=== PATIENT | female | born 1995 | race Caucasian/White ===

== ENCOUNTER 2019-10-15 13:51 | Outpatient (CLI) | payer OTHER ==
[2019-10-15 16:55] VITALS: BP 121/78; PULSE 91; RESP 16; TEMP 98
--- NOTE | 2019-10-16 07:45 | P.MSEPDOC ---
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 [employer] Medical History - Information : 2 Para: 1 Term: 1 : 0 Abortions: Spontaneous or Elective: 0 Number of Living Children: 1 - Gestational Age Gestational Age by EVER (wks/days): 32 Weeks and 4 Days Review of Systems - Review of Systems Constitutional: No problems Breast: No problems ENT: No problems Cardiovascular: No problems Respiratory: No problems Gastrointestinal: No problems Genitourinary: No problems Musculoskeletal: No problems Neurological: No problems Skin: No problems Vital Signs - Temperature Temperature: 98 F Temperature Source: Temporal Artery Scan - Pulse Right Pulse Rate: 91 Pulse Assessment Method: Automatic Cuff - Respirations Respiratory Rate: 16 Oxygen Delivery Method: Room Air O2 Sat by Pulse Oximetry: 98 - Blood Pressure Right Arm Blood Pressure: 121/78 Blood Pressure Mean: 92 Blood Pressure Source: Automatic Cuff Medical Screen Scoring (Pre) - Cervical Exam Dilation: 1-3 cm = 1 Membranes: Intact - Uterine Contractions Frequency: N/A Duration: N/A Intensity: N/A - Maternal Vital Signs Maternal Temperature: N/A Maternal Blood Pressure: N/A Signs of Preeclampsia: N/A Maternal Respirations: N/A - Maternal Trauma Maternal Trauma: N/A - Assessment - Baby A Baseline FHR: 130 Heart Rate - NICHD Category: Category I (Normal) = 0 NST: Reactive Position: N/A Station: N/A - Total Score - Baby A Total Score - Baby A: 1 - Total Score - Baby B Total Score - Baby B: 1 - Total Score - Baby C Total Score - Baby C: 1 - Level of Risk - Baby A Level of Risk - Baby A: Low (0-5) - Level of Risk - Baby B Level of Risk - Baby B: Low (0-5) - Level of Risk - Baby C Level of Risk - Baby C: Low (0-5) Physician Notification (Pre) - Physician Notified Physician Notified Date: 10/15/19 Physician Notified Time: 15:26 New Order Received: Yes (monitor one more hour if no change and reactive may dc) - Notification Comment Comment: cervix remains unchanged, reactive fhts, no contractions Disposition - Disposition OB Disposition: Triage, Discharge to home Discharge Date: 10/15/19 Discharge Time: 16:30 I agree with the RN Medical Screening Exam: Yes Physician's MSE Comment: THe RN did tell me pt was 1cm, thick and posterior at first. No contractions and category 1 FHT. After 1 hour, the cervix still 1/thick but anterior. We waited another hour and pt was the same. no cervical change, no contractions and neg FFN, pt will be sent home. Risk & Benefit of care provided described in d/c instruction: Yes Diagnosis: FALSE LABOR BEFORE 37 COMPLETED WEEKS OF GEST, THIRD TRI
== END 2019-10-15 16:30 | disposition home or self-care (01) ==
LOC: FBPOP 13:51
PROVIDERS: ATTEND Obstetrics & Gynecology
DX: O47.03 False labor before 37 completed weeks of gestation, third trimester (principal); Z3A.32 32 weeks gestation of pregnancy
CPT/HCPCS: 59025; 82731; G0463; 99213

== ENCOUNTER 2019-11-04 12:44 | Outpatient (CLI) | payer OTHER ==
[2019-11-04 13:52] VITALS: BP 122/81; PULSE 110; RESP 18; TEMP 98
--- NOTE | 2019-11-21 09:56 | P.MSEPDOC ---
Presenting Problems - Arrival Data Date of Arrival on Unit: 11/04/19 Time of Arrival on Unit: 12:45 Mode of Transport: Ambulatory - Complaint OB-Reason for Admission/Chief Complaint: Possible Onset of Labor Comment: contractions. Pt unable to time them. Medical History - Information : 2 Para: 1 Term: 1 : 0 Abortions: Spontaneous or Elective: 0 Number of Living Children: 1 - Gestational Age Gestational Age by EVER (wks/days): 35 Weeks and 3 Days Review of Systems - Review of Systems Constitutional: No problems Breast: No problems ENT: No problems Cardiovascular: No problems Respiratory: No problems Gastrointestinal: No problems Genitourinary: No problems Musculoskeletal: No problems Neurological: No problems Skin: No problems Vital Signs - Temperature Temperature: 98.0 F Temperature Source: Oral - Pulse Right Sitting Brachial Pulse Rate: 110 Pulse Assessment Method: Automatic Cuff - Respirations Respiratory Rate: 18 Oxygen Delivery Method: Room Air - Blood Pressure Right Arm Sitting Blood Pressure: 122/81 Blood Pressure Mean: 94 Blood Pressure Source: Automatic Cuff Medical Screen Scoring (Pre) - Cervical Exam Dilation: 1-3 cm = 1 - Uterine Contractions Frequency: > 5 minutes apart = 1 Duration: N/A Intensity: N/A - Maternal Vital Signs Maternal Temperature: N/A Maternal Blood Pressure: N/A Signs of Preeclampsia: N/A Maternal Respirations: N/A - Maternal Trauma Maternal Trauma: N/A - Assessment - Baby A Baseline FHR: 130 Heart Rate - NICHD Category: Category I (Normal) = 0 NST: Reactive Position: N/A Station: N/A - Total Score - Baby A Total Score - Baby A: 2 - Total Score - Baby B Total Score - Baby B: 2 - Total Score - Baby C Total Score - Baby C: 2 - Level of Risk - Baby A Level of Risk - Baby A: Low (0-5) - Level of Risk - Baby B Level of Risk - Baby B: Low (0-5) - Level of Risk - Baby C Level of Risk - Baby C: Low (0-5) Physician Notification (Pre) - Physician Notified Physician Notified Date: 11/04/19 Physician Notified Time: 13:45 New Order Received: Yes - Notification Comment Comment: Dc home. Follow up in the office with Dr Steele as scheduled. Disposition - Disposition OB Disposition: Discharge to home Discharge Date: 11/04/19 Discharge Time: 13:52 I agree with the RN Medical Screening Exam: Yes Risk & Benefit of care provided described in d/c instruction: Yes Diagnosis: FALSE LABOR BEFORE 37 COMPLETED WEEKS OF GEST, THIRD TRI
== END 2019-11-04 13:52 | disposition home or self-care (01) ==
LOC: FBPOP 12:44
PROVIDERS: ATTEND Obstetrics & Gynecology
DX: O47.03 False labor before 37 completed weeks of gestation, third trimester (principal); Z3A.35 35 weeks gestation of pregnancy
CPT/HCPCS: 59025; G0463; 99213

== ENCOUNTER 2019-11-14 15:51 | Outpatient (CLI) | payer OTHER ==
[2019-11-14 17:22] VITALS: BP 122/75; PULSE 93; RESP 16; TEMP 98.6
--- NOTE | 2019-11-15 13:22 | P.MSEPDOC ---
Presenting Problems - Arrival Data Date of Arrival on Unit: 11/14/19 Time of Arrival on Unit: 15:52 Mode of Transport: Ambulatory - Complaint OB-Reason for Admission/Chief Complaint: Possible Onset of Labor Comment: ctx and pressure for 2 days, 4cm in office Medical History - Information : 2 Para: 1 Term: 1 : 0 Abortions: Spontaneous or Elective: 0 Number of Living Children: 1 - Gestational Age Gestational Age by EVER (wks/days): 37 Weeks and 0 Days Review of Systems - Review of Systems Constitutional: No problems Breast: No problems ENT: No problems Cardiovascular: No problems Respiratory: No problems Gastrointestinal: No problems Genitourinary: No problems Musculoskeletal: No problems Neurological: No problems Skin: No problems Vital Signs - Temperature Temperature: 98.6 F Temperature Source: Temporal Artery Scan - Pulse Right Pulse Rate: 93 Pulse Assessment Method: Automatic Cuff - Respirations Respiratory Rate: 16 Oxygen Delivery Method: Room Air O2 Sat by Pulse Oximetry: 98 - Blood Pressure Right Arm Blood Pressure: 122/75 Blood Pressure Mean: 90 Blood Pressure Source: Automatic Cuff Medical Screen Scoring (Pre) - Cervical Exam Dilation: 4-7 cm = 2 Effacement: More than 50% = 2 Membranes: Intact - Uterine Contractions Frequency: > or = 36 weeks =2 Duration: > 40 seconds = 2 Intensity: N/A - Maternal Vital Signs Maternal Temperature: N/A Maternal Blood Pressure: N/A Signs of Preeclampsia: N/A Maternal Respirations: N/A - Maternal Trauma Maternal Trauma: N/A - Assessment - Baby A Baseline FHR: 125 Heart Rate - NICHD Category: Category I (Normal) = 0 NST: Reactive Position: N/A Station: N/A - Total Score - Baby A Total Score - Baby A: 8 - Total Score - Baby B Total Score - Baby B: 8 - Total Score - Baby C Total Score - Baby C: 8 - Level of Risk - Baby A Level of Risk - Baby A: Medium (6-9) - Level of Risk - Baby B Level of Risk - Baby B: Medium (6-9) - Level of Risk - Baby C Level of Risk - Baby C: Medium (6-9) Physician Notification (Pre) - Physician Notified Physician Notified Date: 11/14/19 Physician Notified Time: 16:54 New Order Received: Yes (discharge if no cervical change) - Notification Comment Comment: No cervical change, reactive fhts, scheduled appt tomorrow in office Disposition - Disposition OB Disposition: Triage, Discharge to home, Written follow up instructions reviewed Discharge Date: 11/14/19 Discharge Time: 17:10 I agree with the RN Medical Screening Exam: Yes Risk & Benefit of care provided described in d/c instruction: Yes Diagnosis: FALSE LABOR AT OR AFTER 37 COMPLETED WEEKS OF GESTATION
== END 2019-11-14 17:10 | disposition home or self-care (01) ==
LOC: FBPOP 15:51
PROVIDERS: ATTEND Obstetrics & Gynecology
DX: O47.1 False labor at or after 37 completed weeks of gestation (principal); Z3A.37 37 weeks gestation of pregnancy
CPT/HCPCS: 59025; G0463; 99213

== ENCOUNTER 2019-11-19 20:13 | Outpatient (CLI) | payer OTHER ==
[2019-11-19 22:08] VITALS: BP 130/80; PULSE 87; RESP 18; TEMP 96.8
--- NOTE | 2019-11-20 08:25 | P.MSEPDOC ---
Presenting Problems - Arrival Data Date of Arrival on Unit: 11/19/19 Time of Arrival on Unit: 20:13 Mode of Transport: Wheelchair - Complaint OB-Reason for Admission/Chief Complaint: Possible Onset of Labor Comment: onset of contractions this morning pt states contractions every 5 minutes most of the day Medical History - Information : 2 Para: 1 Term: 1 : 0 Abortions: Spontaneous or Elective: 0 Number of Living Children: 1 - Gestational Age Gestational Age by EVER (wks/days): 37 Weeks and 5 Days Review of Systems - Review of Systems Constitutional: No problems Breast: No problems ENT: No problems Cardiovascular: No problems Respiratory: No problems Gastrointestinal: No problems Genitourinary: No problems Musculoskeletal: No problems Neurological: No problems Skin: No problems Vital Signs - Temperature Temperature: 96.8 F Temperature Source: Temporal Artery Scan - Pulse Right Pulse Oximetery Pulse Rate: 87 Pulse Assessment Method: Pulse Oximetry - Respirations Respiratory Rate: 18 Oxygen Delivery Method: Room Air O2 Sat by Pulse Oximetry: 98 - Blood Pressure Right Arm Blood Pressure: 130/80 Blood Pressure Mean: 96 Blood Pressure Source: Automatic Cuff Medical Screen Scoring (Pre) - Cervical Exam Dilation: 4-7 cm = 2 Membranes: Intact - Uterine Contractions Frequency: > or = 36 weeks =2 Duration: > 40 seconds = 2 Intensity: N/A - Maternal Vital Signs Maternal Temperature: N/A Maternal Blood Pressure: N/A Signs of Preeclampsia: N/A Maternal Respirations: N/A - Maternal Trauma Maternal Trauma: N/A - Assessment - Baby A Baseline FHR: 140 Heart Rate - NICHD Category: Category I (Normal) = 0 NST: Reactive Position: N/A Station: N/A - Total Score - Baby A Total Score - Baby A: 6 - Total Score - Baby B Total Score - Baby B: 6 - Total Score - Baby C Total Score - Baby C: 6 - Level of Risk - Baby A Level of Risk - Baby A: Medium (6-9) - Level of Risk - Baby B Level of Risk - Baby B: Medium (6-9) - Level of Risk - Baby C Level of Risk - Baby C: Medium (6-9) Physician Notification (Pre) - Physician Notified Physician Notified Date: 11/19/19 Physician Notified Time: 21:35 New Order Received: Yes - Notification Comment Comment: Dr Given report on pt here for contractions, same cervical exam as when she was in office days ago, no cervical change after one hour, pt reports not feeling most of the contractions anymore. pt discharged home. Disposition - Disposition OB Disposition: Discharge to home Discharge Date: 11/19/19 Discharge Time: 21:41 I agree with the RN Medical Screening Exam: Yes Risk & Benefit of care provided described in d/c instruction: Yes Diagnosis: FALSE LABOR AT OR AFTER 37 COMPLETED WEEKS OF GESTATION
== END 2019-11-19 21:41 | disposition home or self-care (01) ==
LOC: FBPOP 20:13
PROVIDERS: ATTEND Obstetrics & Gynecology
DX: O47.1 False labor at or after 37 completed weeks of gestation (principal); Z3A.37 37 weeks gestation of pregnancy
CPT/HCPCS: 59025; G0463; 99213

== ENCOUNTER 2019-11-25 13:13 | Outpatient (CLI) | payer OTHER ==
[2019-11-25 14:00] VITALS: BP 115/72; PULSE 88; TEMP 98.7
[2019-11-25 15:10] VITALS: RESP 17
--- NOTE | 2019-11-25 17:22 | P.MSEPDOC ---
Presenting Problems - Arrival Data Date of Arrival on Unit: 11/25/19 Time of Arrival on Unit: 13:13 Mode of Transport: Ambulatory - Complaint OB-Reason for Admission/Chief Complaint: Vaginal Bleeding, Other Comment: pt here with c/o bright red bleeding that occurred around 0800 when using the restroom, pt reports wiping after urination and noticing the bright red blood at that time, pt used the restroom later in the morning and noticed the same, denies bleeding noted on pants or having to wear a pad, reports + fm, denies regular contractions, abd soft and non tender Medical History - Information : 2 Para: 1 Term: 1 : 0 Abortions: Spontaneous or Elective: 0 Number of Living Children: 1 - Gestational Age Gestational Age by EVER (wks/days): 38 Weeks and 3 Days Review of Systems - Review of Systems Constitutional: No problems Breast: No problems ENT: No problems Cardiovascular: No problems Respiratory: No problems Gastrointestinal: No problems Genitourinary: No problems Musculoskeletal: No problems Neurological: No problems Skin: No problems Vital Signs - Temperature Temperature: 98.7 F Temperature Source: Temporal Artery Scan - Pulse Right Brachial Pulse Rate: 88 Pulse Assessment Method: Automatic Cuff - Respirations Respiratory Rate: 17 Oxygen Delivery Method: Room Air - Blood Pressure Right Arm Blood Pressure: 115/72 Blood Pressure Mean: 86 Blood Pressure Source: Automatic Cuff Medical Screen Scoring (Pre) - Cervical Exam Dilation: 4-7 cm = 2 Effacement: More than 50% = 2 Membranes: Intact - Uterine Contractions Frequency: > 5 minutes apart = 1 Duration: > 40 seconds = 2 Intensity: N/A - Maternal Vital Signs Maternal Temperature: N/A Maternal Blood Pressure: N/A Signs of Preeclampsia: N/A Maternal Respirations: N/A - Maternal Trauma Maternal Trauma: N/A - Assessment - Baby A Baseline FHR: 140 Heart Rate - NICHD Category: Category I (Normal) = 0 NST: Reactive Position: N/A Station: N/A - Total Score - Baby A Total Score - Baby A: 7 - Total Score - Baby B Total Score - Baby B: 7 - Total Score - Baby C Total Score - Baby C: 7 - Level of Risk - Baby A Level of Risk - Baby A: Medium (6-9) - Level of Risk - Baby B Level of Risk - Baby B: Medium (6-9) - Level of Risk - Baby C Level of Risk - Baby C: Medium (6-9) Physician Notification (Pre) - Physician Notified Physician Notified Date: 11/25/19 Physician Notified Time: 14:55 New Order Received: Yes (dc home) - Notification Comment Comment: pts cervical exam remains same as previous exam in office, pt ok to dc home Disposition - Disposition OB Disposition: Discharge to home, Written follow up instructions reviewed Discharge Date: 11/25/19 Discharge Time: 15:05 I agree with the RN Medical Screening Exam: Yes Risk & Benefit of care provided described in d/c instruction: Yes Diagnosis: FALSE LABOR AT OR AFTER 37 COMPLETED WEEKS OF GESTATION
== END 2019-11-25 15:05 | disposition home or self-care (01) ==
LOC: FBPOP 13:13
PROVIDERS: ATTEND Obstetrics & Gynecology
DX: O47.1 False labor at or after 37 completed weeks of gestation (principal); Z3A.38 38 weeks gestation of pregnancy
CPT/HCPCS: 59025; G0463; 99213

== ENCOUNTER 2019-11-25 16:26 | Inpatient (IN) | payer OTHER ==
[2019-11-25] MEDS ORDERED: CARBOPROST TROMETHAMINE 250 MCG/ML 1 ML AMP IM PRN (16:30)
[2019-11-25] MEDS ORDERED: METHYLERGONOVINE 0.2 MG/ML 1 ML AMP IM PRN (16:30)
[2019-11-25] MEDS ORDERED: TERBUTALINE 1 MG/ML VIAL SQ PRN (16:30)
[2019-11-25] MEDS ORDERED: LACTATED RINGERS 1,000 ML IV SCH (16:30)
[2019-11-25] MEDS ORDERED: OXYTOCIN 10 UNIT/ML 1 ML VIAL IM PRN (16:30)
[2019-11-25] MEDS ORDERED: LIDOCAINE 0.5% (PF) 5 MG/ML (50 ML SDV) SQ PRN (16:30)
[2019-11-25 17:08] LABS: Basophils % (A) 0 %; Eosinophils # (A) 0.1 k/uL (0-0.7); Eosinophils % (A) 1 %; HCT 40.7 % (34.0-46.0); HGB 12.7 gm/dL (11.4-16.0); Hypochromasia Slight; Lymphocytes # (A) 1.3 k/uL (1.0-4.8); Lymphocytes % (A) 8 %; MCH 26.9 pg (25.0-35.0); MCHC 31.2 g/dL (31.0-37.0); MCV 86.2 fL (80.0-100.0); Mean Platelet Volume 7.2; Monocytes # (A) 0.8 k/uL (0-1.0); Monocytes % (A) 5 %; Neutrophils % (A) 85 %; Platelet Count 219 k/uL (150-450); RBC 4.73 m/uL (3.80-5.40); RDW 14.4 % (11.5-15.5); WBC 16.5 k/uL (3.8-10.6)
--- NOTE | 2019-11-25 17:20 | P.HPOB ---
History of Present Illness H&P Date: 11/25/19 Chief Complaint: Contractions This is a 24-year-old female 2 para 1 with an estimated date of confinement of 12/05/2019, estimated gestational age of 38-3/7 weeks, who presents to labor and delivery with complaints of contractions that began shortly prior to arrival. She was seen in triage earlier in the day for some light spotting with wiping. At that time she had made no cervical change in 1 hour. No active bleeding was noted at that time. Contractions were irregular at that time. Upon arrival this time, she was noted to be 8 cm and in active labor. She denied any rupture of membranes. care has been uncomplicated. labs: Group B streptococcus-negative Hepatitis B surface antigen-negative RPR-nonreactive Rubella-immune Blood type-A+ Antibody screen-negative HIV-nonreactive Hemoglobin-12.7 Toxoplasma screen-negative Random glucose-69 Obstetrical ultrasound-normal anatomy One hour Glucola-145 Three-hour Glucola-within normal limits Obstetrical history: . History of 1 vaginal delivery at 37-1/2 weeks. Gynecologic history: No history of sexual transmitted diseases. Social history: She is single. 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 Review of Systems Constitutional: Denies chills, Denies fever Eyes: denies blurred vision, denies pain Ears, nose, mouth and throat: Denies headache, Denies sore throat Cardiovascular: Denies chest pain, Denies shortness of breath Respiratory: Denies cough Gastrointestinal: Reports abdominal pain (Contractions) Genitourinary: Reports pelvic pain, Reports Musculoskeletal: Reports low back pain Integumentary: Denies pruritus, Denies rash Neurological: Denies numbness, Denies weakness Psychiatric: Denies anxiety, Denies depression Past Medical History Past Medical History: No Reported History History of Any Multi-Drug Resistant Organisms: None Reported Additional Past Surgical History / Comment(s): Myringotomy with tube placement Past Anesthesia/Blood Transfusion Reactions: No Reported Reaction Past Psychological History: No Psychological Hx Reported Smoking Status: Never smoker Past Alcohol Use History: None Reported Past Drug Use History: None Reported - Past Family History Father Family Medical History: Diabetes Mellitus Brother(s) Family Medical History: Diabetes Mellitus Medications and Allergies Home Medications Medication Instructions Recorded Confirmed Type Pnv,Calcium 72/Iron/Folic Acid 1 each PO DAILY 11/04/19 11/25/19 History [ Plus Tablet] Cephalexin [Keflex] 500 mg PO Q6HR 11/25/19 11/25/19 History Allergies Allergy/AdvReac Type Severity Reaction Status Date / Time No Known Allergies Allergy Verified 11/25/19 16:29 Exam Osteopathic Statement: *. No significant issues noted on an osteopathic structural exam other than those noted in the History and Physical/Consult. Vital Signs Temp Pulse Resp BP Pulse Ox 11/25/19 16:39 97.6 F 95 16 138/81 99 Intake and Output 11/25/19 11/25/19 11/25/19 06:59 14:59 22:59 Other: Weight 73.936 kg HEENT: Within normal limits Heart: Regular rate and rhythm Lungs: Clear to auscultation bilaterally Abdomen: Cervix: 8 cm/80%/bulging bag heart tones: Reactive Contractions: Every couple minutes Extremities: Negative Homans Results Result Diagrams: 11/25/19 16:35 Abnormal Lab Results - Last 24 Hours (Table) 11/25/19 Range/Units 16:35 WBC 16.5 H (3.8-10.6) k/uL Neutrophils # 14.0 H (1.3-7.7) k/uL Assessment and Plan (1) 38 weeks gestation of Current Visit: Yes Status: Acute Code(s): Z3A.38 - 38 WEEKS GESTATION OF SNOMED Code(s): 65088654 Plan: Admission for active labor. Expectant management.
--- NOTE | 2019-11-25 17:21 | P.PROBDLV ---
Vaginal Delivery Note - . Vaginal Delivery Note: The patient had spontaneous rupture of membranes shortly after arrival. Clear fluid was noted. At this point she was noted to be complete dilation. She began pushing. 's head came to a crown. With one further push, the infant's head delivered across the perineum followed by the anterior shoulder. With one remaining push, the remainder the easily delivered and the was placed on mother's abdomen. Nose and mouth were bulb suctioned. Cord was clamped and cut. was taken to warmer for evaluation. A viable male was noted with scores of 9 at 1 minute and 9 at 5 minutes and infant weight is 7 lbs. 13 oz. Placenta delivered shortly thereafter, intact, with a three-vessel cord. Uterus contracted fairly well after oxytocin was given and uterine massage was carried out. Her bladder was also drained with a straight cath. Inspection of the perineum revealed no perineal lacerations. She did have a small right periurethral abrasion that was noted to be hemostatic. Estimated blood loss is approximately 150 mL's. Both mother and infant are in stable condition.
[2019-11-25] MEDS ORDERED: ZOLPIDEM 5 MG TAB PO PRN (18:11)
[2019-11-25] MEDS ORDERED: SIMETHICONE 80 MG CHEWABLE PO PRN (18:11)
[2019-11-25] MEDS ORDERED: diphenhydrAMINE 25 MG CAP PO PRN (18:11)
[2019-11-25] MEDS ORDERED: LANOLIN CREAM 5 GM TUBE TOPICAL PRN (18:11)
[2019-11-25] MEDS ORDERED: BENZOCAINE/MENTHOL SPRAY 1 GM/SPRAY AEROSOL TOPICAL PRN (18:11)
[2019-11-25] MEDS ORDERED: HYDROCORTISONE 2.5% RECTAL CREAM 30 GM TUBE RECTAL PRN (18:11)
[2019-11-25] MEDS ORDERED: OXYTOCIN 20 UNITS/1000 ML NS 1,000 ML IV SCH (18:11)
[2019-11-25] MEDS ORDERED: diphenhydrAMINE 50 MG CAP PO PRN (18:11)
[2019-11-25] MEDS ORDERED: ACETAMINOPHEN TAB 325 MG TAB PO PRN (18:11)
[2019-11-25] MEDS ORDERED: diphenhydrAMINE 50 MG/ML 1 ML VIAL IVP PRN ×2 (18:11)
[2019-11-25] MEDS: IBUPROFEN 600 MG TAB PO PRN (19:51)
[2019-11-25] MEDS: CEPHALEXIN 500 MG CAP PO SCH (19:51)
[2019-11-25] MEDS: SENNOSIDES-DOCUSATE SODIUM 1 EACH TAB PO SCH (20:20)
[2019-11-26] MEDS: CEPHALEXIN 500 MG CAP PO SCH ×4 (00:26→20:03)
[2019-11-26 06:54] LABS: Basophils % (A) 0 %; Eosinophils % (A) 0 %; HGB 10.3 gm/dL (11.4-16.0); Lymphocytes # (A) 1.3 k/uL (1.0-4.8); Lymphocytes % (A) 9 %; MCH 26.8 pg (25.0-35.0); MCHC 32.3 g/dL (31.0-37.0); Monocytes # (A) 0.6 k/uL (0-1.0); Monocytes % (A) 4 %; Neutrophils # (A) 12.3 k/uL (1.3-7.7); Neutrophils % (A) 86 %; Platelet Count 204 k/uL (150-450); RBC 3.86 m/uL (3.80-5.40); RDW 14.1 % (11.5-15.5); WBC 14.4 k/uL (3.8-10.6)
[2019-11-26] MEDS: SENNOSIDES-DOCUSATE SODIUM 1 EACH TAB PO SCH ×2 (08:08→20:02)
[2019-11-26] MEDS ORDERED: PRENATAL VIT-IRON-FOLIC ACID 1 EACH CAP PO SCH (09:00)
--- NOTE | 2019-11-26 11:05 | P.DS ---
Providers Date of admission: 11/25/19 16:28 Expected date of discharge: 11/26/19 Attending physician: Jamilah Steele Primary care physician: Stated None - Discharge Diagnosis(es) (1) 38 weeks gestation of Current Visit: Yes Status: Acute Hospital Course: This is a 24-year-old female 2 para 1 at 38-3/7 weeks who presented with active labor. She delivered vaginally a viable male infant with scores of 9 at 1 minute and 9 at 5 minutes and weight of 7 lbs. 13 oz. Her course has been uncomplicated. Lochia has been decreasing. Pain is well-controlled with ibuprofen. She is breast-feeding. Vital signs are stable. Abdomen is soft with fundus firm and nontender. Extremities show negative Homans. Impression is status post vaginal delivery day #1. Plan is to discharge home either today or tomorrow morning depending on how she feels. Routine instructions are given. She is given a prescription for ibuprofen and a breast pump. She is advised follow-up in the office in 6 weeks for check. She is advised to call the office if she has any further questions or concerns prior to her appointment time. Procedures: Spontaneous vaginal delivery of a viable male on 11/25/2019 Patient Condition at Discharge: Stable Plan - Discharge Summary New Discharge Prescriptions: New Ibuprofen [Motrin] 600 mg PO Q6HR PRN #60 tab PRN Reason: Mild Pain Or Fever >= 100.5 Continue Pnv,Calcium 72/Iron/Folic Acid [ Plus Tablet] 1 each PO DAILY Cephalexin [Keflex] 500 mg PO Q6HR Discharge Medication List Pnv,Calcium 72/Iron/Folic Acid [ Plus Tablet] 1 each PO DAILY 11/04/19 [History] Cephalexin [Keflex] 500 mg PO Q6HR 11/25/19 [History] Ibuprofen [Motrin] 600 mg PO Q6HR PRN #60 tab 11/26/19 [Rx] Follow up Appointment(s)/Referral(s): Jamilah Steele DO [Doctor of Osteopathic Medicine] - 6 Weeks Activity/Diet/Wound Care/Special Instructions: Instructions 1. Do not begin any exercise program for 3 weeks. 2. Do not resume sexual relations for 3 weeks or longer if uncomfortable. 3. You may take tub baths or showers at any time. 4. You may use tampons if desired after 3 weeks. 5. Keep the area of episiotomy (stitches) clean and dry. 6. If you are not nursing, wear a good fitting, supportive bra during the day and limit fluid intake for at least 1 week to prevent breast engorgement. 7. Call the office, [phone], within the next week to make appointment for your 6 week checkup if it has not already been made. 8. Report any of the following occurrences to the doctor promptly: a. Heavy, excessive bleeding b. Chills, fever c. Burning or frequency of urination d. Pain or redness and breasts if nursing e. Increasing pain or swelling in episiotomy (stitches). In addition to the above instructions, the following additional should be followed: 1. No heavy lifting or straining (exercising) until after 6 week checkup. 2. Keep abdominal incision clean and dry: You may wear a dressing if more comfortable. 3. Make office appointment for 10 days after going home or as instructed by her doctor. Discharge Disposition: HOME SELF-CARE
[2019-11-26] MEDS: IBUPROFEN 600 MG TAB PO PRN (17:49)
[2019-11-27] MEDS: CEPHALEXIN 500 MG CAP PO SCH ×2 (01:04→06:05)
[2019-11-27 08:37] VITALS: BP 114/75; PULSE 105; RESP 15; TEMP 98
[2019-11-27] MEDS: SENNOSIDES-DOCUSATE SODIUM 1 EACH TAB PO SCH (08:37)
== END 2019-11-27 10:00 | disposition home or self-care (01) | DRG 807 ==
LOC: FBPOP 16:26 → 4FBP 16:28
PROVIDERS: ADMIT Obstetrics & Gynecology; ATTEND Obstetrics & Gynecology
PROC: 10E0XZZ Delivery of Products of Conception, External Approach (ICD-10-PCS; principal; 2019-11-25)
DX: O71.82 Other specified trauma to perineum and vulva (principal); Z37.0 Single live birth; Z3A.38 38 weeks gestation of pregnancy; Z79.899 Other long term (current) drug therapy; Z83.3 Family history of diabetes mellitus
CPT/HCPCS: 85025

== ENCOUNTER → 2020-08-01 | Outpatient (CLI) | payer OTHER ==
--- NOTE | 2020-08-02 08:01 | US ---
EXAMINATION TYPE: US OB >= 14 wk fetus DATE OF EXAM: 08/01/2020 COMPARISON: None CLINICAL HISTORY: 25-year-old female Confirm dates Z36 TECHNIQUE: Transabdominal sonographic images of the pelvis are obtained. FINDINGS: GESTATIONAL AGE / DATING Physician Established: Not yet established Dates by LMP: LMP unknown Dates by First Scan: No previous this is first scan Dates by Current Scan: (15 weeks/1 days) EDC: 01/22/2021 SURVEY IUP: Single PLACENTA: Anterior PREVIA: No Previa. Low lying at this time with the inferior tip of the placenta measuring 2.7 cm fro m the internal cervical os. DAVE: 11.6 cm Normal CERVICAL LENGTH (transabdominal: norm > 3.0cm): 3.2 cm BIOMETRY PRESENTATION: Breech LIE: Transverse with head maternal Right BPD: 2.8 cm 15 weeks / 0 days HC: 10.2 cm 14 weeks / 5 days AC: 9.2 cm 15 weeks / 3 days FL: 1.5 cm 14 weeks / 2 days ESTIMATED WEIGHT IN GRAMS: 107.5 grams ESTIMATED WEIGHT IN LBS/OZ: 0 lbs. 4 oz. HC/AC: 1.11 Normal FL/AC: 15.85 FL/HC: 14.30 Abnormal (normal 15.0-17.0) HEART RATE: 161 bpm RHYTHM: Normal IMPRESSION: 1. Single live intrauterine with average gestational age of 15 weeks 1 day by current biometry. The FL/HC is slightly small, measuring outside the expected range. Reassess at followup. 2. In addition, complete survey recommended at 18-20 weeks.
== END | disposition home or self-care (01) ==
LOC: RADUSWWP 15:31
PROVIDERS: ATTEND Obstetrics & Gynecology
DX: O36.8920 Maternal care for other specified fetal problems, second trimester, not applicable or unspecified (principal); Z3A.15 15 weeks gestation of pregnancy
CPT/HCPCS: 76805

== ENCOUNTER 2021-01-04 06:29 | Outpatient (CLI) | payer OTHER ==
[2021-01-04 06:59] LABS: Appearance,Urine Clear (Clear); Bilirubin,Urine Negative (Negative); Blood,Urine Negative (Negative); Color,Urine Yellow; Glucose,Urine (UA) 4+ (Negative); Leukocyte Esterase,Urine Negative (Negative); Nitrite,Urine Negative (Negative); Protein,Urine Trace (Negative); Specific Gravity,Urine 1.036 (1.001-1.035); Urobilinogen,Urine <2.0 mg/dL (<2.0)
[2021-01-04 07:03] LABS: Ketones,Urine 2+ (Negative)
[2021-01-04] MEDS ORDERED: ONDANSETRON 4 MG/2 ML VIAL IVP STA (07:35)
[2021-01-04] MEDS ORDERED: BUTORPHANOL 1 MG/ML 1 ML VIAL IV ONE (07:36)
[2021-01-04] MEDS: LACTATED RINGERS 1,000 ML IV SCH ×2 (07:52→08:27)
[2021-01-04 09:35] VITALS: BP 135/85; PULSE 109; RESP 18; TEMP 98.3
--- NOTE | 2021-01-04 11:58 | P.MSEPDOC ---
Presenting Problems - Arrival Data Date of Arrival on Unit: 01/04/21 Time of Arrival on Unit: 06:29 Mode of Transport: Wheelchair - Complaint OB-Reason for Admission/Chief Complaint: Pain Comment: pt presents to triage for right flank pain that is constant and rating 10/10 Medical History - Information : 3 Para: 2 Term: 2 : 0 Abortions: Spontaneous or Elective: 0 Number of Living Children: 2 - Gestational Age Gestational Age by EVER (wks/days): 37 Weeks and 3 Days Review of Systems - Review of Systems Constitutional: No problems Breast: No problems ENT: No problems Cardiovascular: No problems Respiratory: No problems Gastrointestinal: No problems Genitourinary: No problems Musculoskeletal: No problems Neurological: No problems Skin: No problems Vital Signs - Temperature Temperature: 98.3 F Temperature Source: Temporal Artery Scan - Pulse Right Brachial Pulse Rate: 109 Pulse Assessment Method: Automatic Cuff - Respirations Respiratory Rate: 18 Oxygen Delivery Method: Room Air O2 Sat by Pulse Oximetry: 99 - Blood Pressure Right Arm Blood Pressure: 135/85 Blood Pressure Mean: 101 Blood Pressure Source: Automatic Cuff Medical Screen Scoring - Cervical Exam Dilation (cm): 3 Effacement (%): 60 Station: -2 Membranes: Intact - Uterine Contractions Frequency From (mins): 0 - Assessment - Baby A Baseline FHR: 140 Heart Rate - NICHD Category: Category I (Normal) NST: Reactive Physician Notification - Physician Notified Physician Notified Date: 01/04/21 Physician Notified Time: 08:41 Physician: Jamilah Steele New Order Received: Yes - Notification Comment Comment: nst reactive, irregular contractions, cervical exam performed, 360/-2, no change from office visit, 1 1/2 bag of LR infused, stadol given for pain, pt rates pain at 2/10 before discharge, Maternal Triage Index - Maternal Triage Index Presenting for scheduled procedure w/no complaint: No - Stat/Priority 1 Stat Priority 1: No - Urgent/Priority 2 Urgent Priority 2: Yes Provider Notified: Jamilah Steele Provider Notified Time: 07:33 Criteria Met for Priority 2: pt is 37 3/7 weeks ga, presenting with severe right flank pain, rating 10/10 Disposition - Disposition OB Disposition: Triage, Discharge to home, Written follow up instructions reviewed Discharge Date: 01/04/21 Discharge Time: 09:00 I agree with the RN Medical Screening Exam: Yes Case reviewed; plan agreed upon as documented in EMR&OBIX.: Yes Diagnosis: CALCULUS OF KIDNEY
== END 2021-01-04 09:00 | disposition home or self-care (01) ==
LOC: FBPOP 06:29
PROVIDERS: ATTEND Obstetrics & Gynecology
DX: O26.833 Pregnancy related renal disease, third trimester (principal); N20.0 Calculus of kidney; Z3A.37 37 weeks gestation of pregnancy; Z88.2 Allergy status to sulfonamides
CPT/HCPCS: 59025; 96361; 96374; 81003; G0463; J0595; 99214

== ENCOUNTER 2021-01-04 13:51 | Inpatient (IN) | payer OTHER ==
[2021-01-04] MEDS: ONDANSETRON 4 MG/2 ML VIAL IVP PRN (15:27)
[2021-01-04] MEDS: LACTATED RINGERS 1,000 ML IV SCH ×2 (15:35→21:25)
[2021-01-04] MEDS: BUTORPHANOL 1 MG/ML 1 ML VIAL IV PRN ×2 (17:10→21:24)
--- NOTE | 2021-01-05 01:04 | P.HPOB ---
History of Present Illness H&P Date: 01/05/21 Chief Complaint: Right flank pain, vomiting this is a 25-year-old female 3 para 2 with an estimated date of confinement of 01/22/2021, estimated gestational age of 37-4/7 weeks, who presented yesterday earlier in the day with complaints of right flank pain with some nausea and vomiting. She was found to have 2+ ketones in her urine and 4+ glucose. She was given IV hydration and one dose of Stadol which helped her pain. She was discharged home and given a hat to strain her urine. She returned several hours later with complaints of nausea and vomiting and continued pain. She is therefore admitted for possible kidney stone and observation. Up until this point this has been uncomplicated. Obstetrical history: . History of 2 vaginal deliveries at term. [employer] history: Review of Systems Constitutional: Denies chills, Denies fever Eyes: denies blurred vision, denies pain Ears, nose, mouth and throat: Denies headache, Denies sore throat Cardiovascular: Denies chest pain, Denies shortness of breath Respiratory: Denies cough Gastrointestinal: Reports abdominal pain (right flank pain that extends towards the right mid abdomen), Reports nausea, Reports vomiting Genitourinary: Reports flank pain, Reports Musculoskeletal: Reports low back pain Integumentary: Denies pruritus, Denies rash Neurological: Denies numbness, Denies weakness Psychiatric: Denies anxiety, Denies depression Past Medical History Past Medical History: No Reported History History of Any Multi-Drug Resistant Organisms: None Reported Past Surgical History: No Surgical Hx Reported Additional Past Surgical History / Comment(s): Myringotomy with tube placement Past Anesthesia/Blood Transfusion Reactions: No Reported Reaction Past Psychological History: No Psychological Hx Reported Smoking Status: Never smoker Past Alcohol Use History: None Reported Past Drug Use History: None Reported - Past Family History Father Family Medical History: Diabetes Mellitus Brother(s) Family Medical History: Diabetes Mellitus Mother Additional Family Medical History / Comment(s): Lupus Medications and Allergies Home Medications Medication Instructions Recorded Confirmed Type Pnv,Calcium 72/Iron/Folic Acid 1 each PO DAILY 11/04/19 01/04/21 History [ Plus Tablet] Allergies Allergy/AdvReac Type Severity Reaction Status Date / Time No Known Allergies Allergy Verified 01/04/21 14:13 Exam Osteopathic Statement: *. No significant issues noted on an osteopathic structural exam other than those noted in the History and Physical/Consult. Vital Signs Temp Pulse Resp BP Pulse Ox 01/04/21 14:12 97.4 F L 92 18 126/79 98 01/04/21 14:00 97.4 F L 92 18 126/79 98 Intake and Output 01/04/21 01/04/21 01/05/21 14:59 22:59 06:59 Other: # Voids 1 Weight 81.647 kg Gen.: Well-developed well-nourished gravid female in no acute distress HEENT: Within normal limits Heart: Regular rate and rhythm Lungs: Clear to auscultation bilaterally Abdomen: , tender in the right side in the mid abdomen Back: Tender along the right flank and right hip area Cervix exam performed by nurse, 3 cm, the same as in the office. heart tones: Reactive, category 1 Contractions: Rare Extremities: Negative Homans Assessment and Plan (1) 37 weeks gestation of Current Visit: Yes Status: Acute Code(s): Z3A.37 - 37 WEEKS GESTATION OF SNOMED Code(s): 84293428 (2) Kidney stone complicating Narrative/Plan: probable kidney stone on the right side Current Visit: Yes Status: Acute Code(s): O26.839 - RELATED RENAL DISEASE, UNSPECIFIED TRIMESTER; N20.0 - CALCULUS OF KIDNEY SNOMED Code(s): 16815860 Plan: Continue with pain control and straining urine. We'll give Tylenol as needed for pain and Stadol for severe pain. Zofran if needed for nausea.
[2021-01-05] MEDS: ACETAMINOPHEN TAB 325 MG TAB PO PRN ×4 (01:21→20:54)
[2021-01-05] MEDS: LACTATED RINGERS 1,000 ML IV SCH ×3 (04:32→20:59)
[2021-01-05] MEDS: BUTORPHANOL 1 MG/ML 1 ML VIAL IV PRN ×3 (04:33→16:59)
[2021-01-05] MEDS: ONDANSETRON 4 MG/2 ML VIAL IVP PRN ×2 (04:33→20:54)
[2021-01-05 06:05] LABS: Basophils % (A) 0 %; Eosinophils % (A) 0 %; HCT 28.9 % (34.0-46.0); HGB 9.1 gm/dL (11.4-16.0); Hypochromasia Moderate; Lymphocytes # (A) 0.8 k/uL (1.0-4.8); Lymphocytes % (A) 7 %; MCH 23.8 pg (25.0-35.0); MCHC 31.5 g/dL (31.0-37.0); MCV 75.5 fL (80.0-100.0); Mean Platelet Volume 7.8; Microcytosis Slight; Monocytes # (A) 0.5 k/uL (0-1.0); Monocytes % (A) 4 %; Neutrophils # (A) 10.5 k/uL (1.3-7.7); Neutrophils % (A) 88 %; Platelet Count 223 k/uL (150-450); Poikilocytosis Slight; RBC 3.83 m/uL (3.80-5.40); RDW 14.4 % (11.5-15.5)
--- NOTE | 2021-01-05 10:21 | P.PN ---
Subjective Progress Note Date: 01/05/21 Principal diagnosis: Probable right nephrolithiasis Patient states she is still having pain in her right flank area and her right upper quadrant. She states that she still has a lot of nausea and has no appetite. She states the pain is worse when she is up walking around. She does not feel like the pain is moving at all at this point. Objective - Vital Signs Vital signs: Vital Signs Temp 96.6 F L 01/05/21 08:00 Pulse 81 01/05/21 08:00 Resp 18 01/05/21 08:00 BP 125/73 01/05/21 08:00 Pulse Ox 98 01/05/21 08:00 Intake & Output 01/04/21 01/05/21 01/05/21 18:59 06:59 18:59 Intake Total 200 Output Total 800 Balance -600 Weight 81.647 kg Intake: IV 200 Output: Urine 800 Other: # Voids 2 1 - Gastrointestinal Gastrointestinal Comment(s): Right flank is tender to touch with some guarding General gastrointestinal: Present: tenderness Localized gastrointestinal: tender: RUQ - Labs CBC & Chem 7: 01/05/21 05:52 Labs: Abnormal Lab Results - Last 24 Hours (Table) 01/05/21 Range/Units 05:52 WBC 12.0 H (3.8-10.6) k/uL Hgb 9.1 L (11.4-16.0) gm/dL Hct 28.9 L (34.0-46.0) % MCV 75.5 L (80.0-100.0) fL MCH 23.8 L (25.0-35.0) pg Neutrophils # 10.5 H (1.3-7.7) k/uL Lymphocytes # 0.8 L (1.0-4.8) k/uL Assessment and Plan Assessment: 37 week with right flank and right upper quadrant pain consistent with possible right nephrolithiasis (1) 37 weeks gestation of Current Visit: Yes Status: Acute Code(s): Z3A.37 - 37 WEEKS GESTATION OF SNOMED Code(s): 46620576 (2) Kidney stone complicating Current Visit: Yes Status: Acute Code(s): O26.839 - RELATED RENAL DISEASE, UNSPECIFIED TRIMESTER; N20.0 - CALCULUS OF KIDNEY SNOMED Code(s): 84288677 Plan: Will order ultrasound of kidneys and right upper quadrant to rule out any gallbladder disease. Will order liver enzymes and bilirubin. Continue pain control and hydration.
--- NOTE | 2021-01-05 10:25 | P.MSEPDOC ---
Presenting Problems - Arrival Data Date of Arrival on Unit: 01/04/21 Time of Arrival on Unit: 13:52 Mode of Transport: Wheelchair - Complaint OB-Reason for Admission/Chief Complaint: Acute Nausea/Vomiting, Pain Comment: Pt presents with report of uncontrollable shaking at home, pain in middle of back/flank and nausea/vomiting times 3-4 per patient due to kidney stone. Medical History - Information : 3 Para: 2 Term: 2 : 0 Abortions: Spontaneous or Elective: 0 Number of Living Children: 2 - Gestational Age Gestational Age by EVER (wks/days): 37 Weeks and 3 Days Review of Systems - Review of Systems Constitutional: No problems Breast: No problems ENT: No problems Cardiovascular: No problems Respiratory: No problems Gastrointestinal: No problems Genitourinary: No problems Musculoskeletal: No problems Neurological: No problems Skin: No problems Vital Signs - Temperature Temperature: 96.6 F Temperature Source: Temporal Artery Scan - Pulse Right Brachial Pulse Rate: 81 Pulse Assessment Method: Pulse Oximetry - Respirations Respiratory Rate: 18 Oxygen Delivery Method: Room Air O2 Sat by Pulse Oximetry: 98 - Blood Pressure Right Arm Blood Pressure: 125/73 Blood Pressure Mean: 90 Blood Pressure Source: Automatic Cuff Medical Screen Scoring - Assessment - Baby A Baseline FHR: 140 Heart Rate - NICHD Category: Category I (Normal) NST: Reactive Physician Notification - Physician Notified Physician Notified Date: 01/04/21 Physician Notified Time: 14:25 Physician: Jamilah Steele Order Received: Yes - Notification Comment Comment: Pt admitted for pain control, nausea, IVF and straining all urine. Maternal Triage Index - Stat/Priority 1 Stat Priority 1: No - Urgent/Priority 2 Urgent Priority 2: No - Prompt/Priority 3 Prompt Priority 3: No - Non-Urgent/Priority 4 Non-Urgent Priority 4: Yes Criteria Met for Priority 4: Pt complaining of pain 10/10 due to kidney stone. Disposition - Disposition OB Disposition: Admit, LDRP Suite I agree with the RN Medical Screening Exam: Yes Case reviewed; plan agreed upon as documented in EMR&OBIX.: Yes Diagnosis: CALCULUS OF KIDNEY
[2021-01-05 10:40] LABS: ALT 12 U/L (4-34); AST 20 U/L (14-36); African American GFR (CKD) >90 (>60 ml/min/1.73 sqM); Albumin 3.3 g/dL (3.5-5.0); Alkaline Phosphatase 128 U/L (38-126); Anion Gap 8 mmol/L; Blood Urea Nitrogen 2 mg/dL (7-17); Calcium 8.9 mg/dL (8.4-10.2); Carbon Dioxide 18 mmol/L (22-30); Chloride 109 mmol/L (98-107); Glucose 114 mg/dL (74-99); Non-African American GFR(CKD) >90 (>60 ml/min/1.73 sqM); Potassium 4.1 mmol/L (3.5-5.1); Sodium 135 mmol/L (137-145); Total Bilirubin 0.8 mg/dL (0.2-1.3); Total Protein 6.2 g/dL (6.3-8.2)
--- NOTE | 2021-01-05 11:10 | US ---
EXAMINATION TYPE: US abd limited kidneys/bladder DATE OF EXAM: 01/05/2021 COMPARISON: NONE CLINICAL HISTORY: Right upper quadrant pain. RUQ pain. No hx kidney stones. Right flank pain. Dominique ent is 37 weeks . EXAM MEASUREMENTS: Liver Length: 17.9 cm Gallbladder Wall: 0.2 cm CBD: 0.3 cm Right Kidney: 11.4 x 5.7 x 6.7 cm Left Kidney: 11.5 x 4.8 x 5.1 cm Pancreas: Obscured by bowel gas Liver: wnl Gallbladder: wnl CBD: wnl Right Kidney: Mild to Moderate right Hydronephrosis, small amount of free fluid seen in [place]'s stephanie ch. D[place]edary hump seen. Left Kidney: Minimal hydronephrosis vs dilated collecting system Bladder: Not well visualized due to third trimester status Bilateral Jets not seen IMPRESSION: Suggestion of mild to moderate right hydronephrosis. Minimal left hydronephrosis may be p resent.
[2021-01-05] MEDS ORDERED: BUTORPHANOL 1 MG/ML 1 ML VIAL ONE (23:45)
[2021-01-06] MEDS: LACTATED RINGERS 1,000 ML IV SCH ×2 (00:50→09:30)
[2021-01-06] MEDS: ACETAMINOPHEN TAB 325 MG TAB PO PRN ×3 (04:22→20:02)
[2021-01-06] MEDS: BUTORPHANOL 1 MG/ML 1 ML VIAL IV PRN ×3 (10:00→23:27)
--- NOTE | 2021-01-06 11:40 | P.PN ---
Subjective Progress Note Date: 01/06/21 Principal diagnosis: Probable right nephrolithiasis Intrauterine at 37-5/7 weeks Patient still has right flank pain and has not passed any stones yet. She still is requiring IV pain medication. She still has a decreased appetite but has been drug fluids. Ultrasound did show mild to moderate hydronephrosis on the right side and a normal gallbladder. Her urine has been [place]-colored per nursing staff. She has been trying to move positions and states that a warm shower does help with her pain. She is feeling good movement. She has been feeling occasional contractions when she is up walking more. Objective - Vital Signs Vital signs: Vital Signs Temp 98.1 F 01/06/21 08:00 Pulse 79 01/06/21 08:00 Resp 16 01/06/21 08:00 BP 125/70 01/06/21 08:00 Pulse Ox 99 01/06/21 00:00 Intake & Output 01/05/21 01/06/21 01/06/21 18:59 06:59 18:59 Intake Total 200 Output Total 800 600 700 Balance -600 -600 -700 Intake: IV 200 Output: Urine 800 600 700 Other: Voiding Method Toilet # Voids 1 1 1 - Exam Right flank tenderness is slightly lower than it was yesterday more towards her hip. - Constitutional General appearance: Present: no acute distress - Labs CBC & Chem 7: 01/05/21 05:52 01/05/21 05:52 Assessment and Plan Assessment: 37-5/7 week with right flank and right upper quadrant pain consistent with probable right nephrolithiasis (1) 37 weeks gestation of Current Visit: Yes Status: Acute Code(s): Z3A.37 - 37 WEEKS GESTATION OF SNOMED Code(s): 46279801 (2) Kidney stone complicating Current Visit: Yes Status: Acute Code(s): O26.839 - RELATED RENAL DISEASE, UNSPECIFIED TRIMESTER; N20.0 - CALCULUS OF KIDNEY SNOMED Code(s): 04690237 Plan: Patient is advised that at this gestational age, risks versus benefit would suggest that if she does not pass the stone in the next day, we may want to proceed with induction of labor so that we can better evaluate her kidney stone after delivery. She is 37-5/7 weeks today and is already dilated to 3 cm. She agrees that we will proceed with induction of labor tomorrow morning if she does not pass the stone today. If she does pass the stone and is feeling better, will discharge home and await spontaneous labor.
[2021-01-06] MEDS: ONDANSETRON 4 MG/2 ML VIAL IVP PRN ×2 (13:32→23:28)
[2021-01-06] MEDS: BENZOCAINE/MENTHOL LOZENG 1 EACH LOZENGE MUCOUS MEM PRN (23:08)
[2021-01-07] MEDS: LACTATED RINGERS 1,000 ML IV SCH ×2 (05:26→08:30)
[2021-01-07] MEDS ORDERED: LACTATED RINGERS 1,000 ML IV SCH (05:28)
[2021-01-07] MEDS ORDERED: METHYLERGONOVINE 0.2 MG/ML 1 ML AMP IM PRN (05:28)
[2021-01-07] MEDS ORDERED: TERBUTALINE 1 MG/ML VIAL SQ PRN (05:28)
[2021-01-07] MEDS ORDERED: LIDOCAINE 0.5% (PF) 5 MG/ML (50 ML SDV) SQ PRN (05:28)
[2021-01-07] MEDS ORDERED: CARBOPROST TROMETHAMINE 250 MCG/ML 1 ML AMP IM PRN (05:28)
[2021-01-07] MEDS ORDERED: OXYTOCIN 30 UNITS/500 ML NS 30 UNIT in SALINE 1 500ML.BAG IV SCH ×2 (05:28→11:37)
[2021-01-07] MEDS ORDERED: OXYTOCIN 10 UNIT/ML 1 ML VIAL IM PRN (05:28)
[2021-01-07] MEDS: BENZOCAINE/MENTHOL LOZENG 1 EACH LOZENGE MUCOUS MEM PRN (05:37)
[2021-01-07 09:39] LABS: Basophils % (A) 0 %; Eosinophils # (A) 0.1 k/uL (0-0.7); Eosinophils % (A) 1 %; HCT 31.3 % (34.0-46.0); HGB 9.6 gm/dL (11.4-16.0); Hypochromasia Marked; Lymphocytes # (A) 0.8 k/uL (1.0-4.8); Lymphocytes % (A) 8 %; MCH 23.5 pg (25.0-35.0); MCHC 30.8 g/dL (31.0-37.0); MCV 76.1 fL (80.0-100.0); Mean Platelet Volume 7.7; Microcytosis Slight; Monocytes # (A) 0.4 k/uL (0-1.0); Monocytes % (A) 4 %; Neutrophils # (A) 8.2 k/uL (1.3-7.7); Neutrophils % (A) 85 %; Platelet Count 246 k/uL (150-450); Poikilocytosis Slight; RBC 4.11 m/uL (3.80-5.40); RDW 14.9 % (11.5-15.5); WBC 9.6 k/uL (3.8-10.6)
[2021-01-07] MEDS ORDERED: SIMETHICONE 80 MG CHEWABLE PO PRN (11:37)
[2021-01-07] MEDS ORDERED: LANOLIN CREAM 5 GM TUBE TOPICAL PRN (11:37)
[2021-01-07] MEDS ORDERED: HYDROCORTISONE 2.5% RECTAL CREAM 30 GM TUBE RECTAL PRN (11:37)
[2021-01-07] MEDS ORDERED: ZOLPIDEM 5 MG TAB PO PRN (11:37)
[2021-01-07] MEDS ORDERED: diphenhydrAMINE 50 MG/ML 1 ML VIAL IVP PRN ×2 (11:37)
[2021-01-07] MEDS ORDERED: diphenhydrAMINE 50 MG CAP PO PRN (11:37)
[2021-01-07] MEDS ORDERED: ACETAMINOPHEN TAB 325 MG TAB PO PRN (11:37)
[2021-01-07] MEDS ORDERED: BENZOCAINE/MENTHOL SPRAY 1 GM/SPRAY AEROSOL TOPICAL PRN (11:37)
[2021-01-07] MEDS ORDERED: diphenhydrAMINE 25 MG CAP PO PRN (11:37)
[2021-01-07] MEDS: IBUPROFEN 600 MG TAB PO SCH (12:09)
[2021-01-07] MEDS: PRENATAL VIT-IRON-FOLIC ACID 1 EACH CAP PO SCH (12:10)
--- NOTE | 2021-01-07 13:25 | P.PROBDLV ---
Vaginal Delivery Note - . Vaginal Delivery Note: The patient underwent oxytocin induction of labor this morning. When I checked her her cervix was 4 cm and she underwent artificial rupture membranes with clear fluid noted. She progressed to complete dilation and began pushing. Infant's head came to a crown and then delivered across the perineum followed immediately by the anterior shoulder and the body of the . Nuchal cord times one was reduced around the during delivery. Infant was placed on mother's abdomen and nose and mouth were bulb suctioned. Cord was clamped and cut and infant was taken to warmer for evaluation. A viable female infant was noted with scores of 8 at 1 minute and 9 at 5 minutes and infant weight of 7 lbs. 4 oz. Placenta delivered shortly thereafter, intact, with three-vessel cord. Uterus contracted well after oxytocin was given and uterine massage was carried out. Inspection of the perineum revealed no perineal lacerations. Estimated blood loss is approximately 150 mL's. Both mother and are in stable condition. Currently she denies any kidney stone pain however she states she was unable to tell the difference between this and contractions at this time.
[2021-01-08 06:48] LABS: Basophils % (A) 0 %; Eosinophils # (A) 0.1 k/uL (0-0.7); Eosinophils % (A) 0 %; HCT 31.1 % (34.0-46.0); HGB 9.9 gm/dL (11.4-16.0); Hypochromasia Moderate; Lymphocytes # (A) 0.8 k/uL (1.0-4.8); Lymphocytes % (A) 7 %; MCH 23.8 pg (25.0-35.0); MCHC 31.9 g/dL (31.0-37.0); MCV 74.6 fL (80.0-100.0); Mean Platelet Volume 7.3; Microcytosis Slight; Monocytes # (A) 0.6 k/uL (0-1.0); Monocytes % (A) 5 %; Neutrophils # (A) 9.4 k/uL (1.3-7.7); Neutrophils % (A) 85 %; Platelet Count 264 k/uL (150-450); Poikilocytosis Slight; RBC 4.17 m/uL (3.80-5.40); RDW 15.2 % (11.5-15.5); WBC 11.1 k/uL (3.8-10.6)
--- NOTE | 2021-01-08 07:57 | P.DS ---
Providers Date of admission: 01/07/21 09:13 Expected date of discharge: 01/08/21 Attending physician: Jamilah Steele Primary care physician: Stated None - Discharge Diagnosis(es) (1) 37 weeks gestation of Current Visit: Yes Status: Acute (2) Kidney stone complicating Current Visit: Yes Status: Acute Hospital Course: Patient was originally admitted for kidney stone pain after 3 days without passing the stone and requiring IV pain medication, the decision was made to proceed with induction of labor to relieve the pressure of the baby off of her kidneys. She underwent oxytocin induction of labor on 01/07/2021 and delivered vaginally a viable female infant with scores of 8 at 1 minute and 9 at 5 minutes and weight of 7 lbs. 4 oz. Her course has been uncomplicated. She has not required any IV pain medication since this time. She still has some mild pain in her right flank area but this has improved considerably. She has only used Tylenol for pain. Lochia has been decreasing. She is breast-feeding. Vital signs are stable. Abdomen is soft with fundus firm and nontender. Extremities show negative Homans. Impression is status post vaginal delivery day #1. Plan is to discharge home today. Routine instructions are given. She will be given a prescription for ibuprofen and a breast pump. She is advised to call the office if she has any further questions or concerns prior to her appointment time. She is encouraged to continue straining her urine and call if she starts to have any increasing kidney pain. Procedures: Oxytocin induction of labor Spontaneous vaginal delivery of a viable female infant on 01/07/2021 Patient Condition at Discharge: Stable Plan - Discharge Summary New Discharge Prescriptions: New Ibuprofen [Motrin] 600 mg PO Q6H #60 tab No Action Pnv,Calcium 72/Iron/Folic Acid [ Plus Tablet] 1 each PO DAILY Discharge Medication List Pnv,Calcium 72/Iron/Folic Acid [ Plus Tablet] 1 each PO DAILY 11/04/19 [History] Ibuprofen [Motrin] 600 mg PO Q6H #60 tab 01/08/21 [Rx] Follow up Appointment(s)/Referral(s): Jamilah Steele DO [Doctor of Osteopathic Medicine] - 02/10/21 2:00 pm Activity/Diet/Wound Care/Special Instructions: Instructions 1. Do not begin any exercise program for 3 weeks. 2. Do not resume sexual relations for 3 weeks or longer if uncomfortable. 3. You may take tub baths or showers at any time. 4. You may use tampons if desired after 3 weeks. 5. Keep the area of episiotomy (stitches) clean and dry. 6. If you are not nursing, wear a good fitting, supportive bra during the day and limit fluid intake for at least 1 week to prevent breast engorgement. 7. Call the office, [phone], within the next week to make appointment for your 6 week checkup if it has not already been made. 8. Report any of the following occurrences to the doctor promptly: a. Heavy, excessive bleeding b. Chills, fever c. Burning or frequency of urination d. Pain or redness and breasts if nursing e. Increasing pain or swelling in episiotomy (stitches). In addition to the above instructions, the following additional should be followed: 1. No heavy lifting or straining (exercising) until after 6 week checkup. 2. Keep abdominal incision clean and dry: You may wear a dressing if more comfortable. 3. Make office appointment for 10 days after going home or as instructed by her doctor. Discharge Disposition: HOME SELF-CARE
[2021-01-08] MEDS: IBUPROFEN 600 MG TAB PO SCH ×5 (08:19→20:37)
[2021-01-08] MEDS: SENNOSIDES-DOCUSATE SODIUM 1 EACH TAB PO SCH ×2 (10:04→20:38)
[2021-01-08] MEDS: PRENATAL VIT-IRON-FOLIC ACID 1 EACH CAP PO SCH (10:05)
[2021-01-09 05:14] VITALS: RESP 16
[2021-01-09] MEDS: IBUPROFEN 600 MG TAB PO SCH ×2 (05:15→13:23)
[2021-01-09 07:49] VITALS: BP 115/75; PULSE 82; TEMP 98.2
[2021-01-09] MEDS: SENNOSIDES-DOCUSATE SODIUM 1 EACH TAB PO SCH (08:00)
[2021-01-09] MEDS: PRENATAL VIT-IRON-FOLIC ACID 1 EACH CAP PO SCH (08:49)
== END 2021-01-09 15:51 | disposition home or self-care (01) | DRG 806 ==
LOC: FBPOP 13:51 → 4FBP 14:36 → OBSVTOIN 01-07 09:13
PROVIDERS: ADMIT Obstetrics & Gynecology; ATTEND Obstetrics & Gynecology
PROC: 10E0XZZ Delivery of Products of Conception, External Approach (ICD-10-PCS; principal; 2021-01-07)
PROC: 10907ZC Drainage of Amniotic Fluid, Therapeutic from Products of Conception, Via Natural or Artificial Opening (ICD-10-PCS; 2021-01-07)
PROC: 3E033VJ Introduction of Other Hormone into Peripheral Vein, Percutaneous Approach (ICD-10-PCS; 2021-01-07)
DX: O99.892 Other specified diseases and conditions complicating childbirth (principal); N13.2 Hydronephrosis with renal and ureteral calculous obstruction; Z37.0 Single live birth; O69.81X0 Labor and delivery complicated by cord around neck, without compression, not applicable or unspecified; O21.0 Mild hyperemesis gravidarum; Z3A.37 37 weeks gestation of pregnancy
CPT/HCPCS: 59025; 76705; 76770; 80053; 85025; 86850; 86900; 86901; 99213

== ENCOUNTER → 2021-09-05 | Outpatient (CLI) | payer OTHER ==
--- NOTE | 2021-09-05 15:31 | US ---
EXAMINATION TYPE: US OB >= 14 wk fetus DATE OF EXAM: 09/05/2021 COMPARISON: None CLINICAL HISTORY: Z36.89 CONFIRM GESTATIONAL DATES positive beta hCG test. TECHNIQUE: Transabdominal (TA) GESTATIONAL AGE / DATING Physician Established: Not yet established Dates by LMP: LMP unknown Dates by First Scan: No previous this is first scan Dates by Current Scan: (14 weeks/5 days) EDC: 03/01/2022 SURVEY IUP: Single PLACENTA: Fundal PREVIA: No Previa DAVE: 10.8 cm Normal CERVICAL LENGTH (transabdominal: norm > 3.0cm): 4.4 cm BIOMETRY PRESENTATION: Breech LIE: Transverse with head maternal R BPD: 2.8 cm 15 weeks / 0 days HC: 10.3 cm 14 weeks / 6 days AC: 8.2 cm 14 weeks / 4 days FL: 1.3 cm 14 weeks / 0 days ESTIMATED WEIGHT IN GRAMS: 94 grams ESTIMATED WEIGHT IN LBS/OZ: 0 lbs. 3 oz. HC/AC: 1.25 FL/AC: 16% HEART RATE: 146 bpm RHYTHM: Normal Single live intrauterine gestation as gestational sac and pole seen. No yolk sac. No cervical t hinning. A breech presentation currently identified. No placenta previa. Measured amniotic fluid inde x within normal limits. biometric measurements congruent and within normal limits. Ovaries and adnexa not assessed. IMPRESSION: As above.
== END | disposition home or self-care (01) ==
LOC: RADUSWWP 14:23
PROVIDERS: ATTEND Obstetrics & Gynecology
DX: Z36.89 Encounter for other specified antenatal screening (principal); Z3A.14 14 weeks gestation of pregnancy
CPT/HCPCS: 76805

== ENCOUNTER 2022-01-19 20:59 | Emergency (ER) | payer OTHER ==
[2022-01-19 21:21] VITALS: RESP 20
--- NOTE | 2022-01-20 00:27 | ED ---
General Adult HPI - General Chief complaint: ENT Stated complaint: Cough,Congestion, 34 weeks preg Time Seen by Provider: 01/19/22 22:30 Source: patient Mode of arrival: ambulatory Limitations: no limitations - History of Present Illness Initial comments: 26 year old female presents the emergency department reporting a sore throat. States that for the past 2 days she has had a sore throat. Her small children have similar symptoms and therefore she feels that she caught it from them. She admits to difficulty swallowing. No fevers, chills. No drooling, trismus, hoarseness or stridor. No reported toothache. She denies any neck pain. No chest pain, shortness of breath or cough. She has not been taking any medications for her symptoms as she is 34 weeks . That she has had a decreasing the amount that she is eating and drinking due to the pain. She denies any abdominal pain. No vaginal bleeding or cramping. Continues to have normal movement. No other alleviating, precipitating or modifying factors - Related Data Home Medications Medication Instructions Recorded Confirmed Vit No.180/Iron/Folic 1 each PO DAILY 11/04/19 01/04/21 [ Plus Vitamin-Mineral] Previous Rx's Medication Instructions Recorded Ibuprofen [Motrin] 600 mg PO Q6H #60 tab 01/08/21 Lidocaine Viscous 2% [Xylocaine 10 ml MUCOUS MEM Q6HR #200 ml 01/20/22 Viscous] Oseltamivir [Tamiflu] 75 mg PO Q12HR #10 cap 01/20/22 Allergies Allergy/AdvReac Type Severity Reaction Status Date / Time No Known Allergies Allergy Verified 01/20/22 12:35 Review of Systems ROS Statement: Those systems with pertinent positive or pertinent negative responses have been documented in the HPI. ROS Other: All systems not noted in ROS Statement are negative. Past Medical History Past Medical History: No Reported History History of Any Multi-Drug Resistant Organisms: None Reported Past Surgical History: No Surgical Hx Reported Additional Past Surgical History / Comment(s): Myringotomy with tube placement Past Anesthesia/Blood Transfusion Reactions: No Reported Reaction Past Psychological History: No Psychological Hx Reported Smoking Status: Never smoker Past Alcohol Use History: None Reported Past Drug Use History: None Reported - Past Family History Father Family Medical History: Diabetes Mellitus Brother(s) Family Medical History: Diabetes Mellitus Mother Additional Family Medical History / Comment(s): Lupus General Exam Limitations: no limitations General appearance: alert, in no apparent distress Head exam: Present: atraumatic, normocephalic, normal inspection Eye exam: Present: normal appearance, PERRL, EOMI. Absent: scleral icterus, conjunctival injection, periorbital swelling ENT exam: Present: normal exam, mucous membranes moist Neck exam: Present: normal inspection. Absent: tenderness, meningismus, lymphadenopathy Respiratory exam: Present: normal lung sounds bilaterally. Absent: respiratory distress, wheezes, rales, rhonchi, stridor Cardiovascular Exam: Present: normal rhythm, tachycardia, normal heart sounds. Absent: systolic murmur, diastolic murmur, rubs, gallop, clicks GI/Abdominal exam: Present: soft, normal bowel sounds. Absent: distended, tenderness, guarding, rebound, rigid Extremities exam: Present: normal inspection, full ROM, normal capillary refill. Absent: tenderness, pedal edema, joint swelling, calf tenderness Back exam: Present: normal inspection Neurological exam: Present: alert, oriented X3, CN II-XII intact Psychiatric exam: Present: normal affect, normal mood Skin exam: Present: warm, dry, intact, normal color. Absent: rash Course Vital Signs 01/19/22 01/20/22 21:19 00:55 Temperature 99.4 F 98.9 F Pulse Rate 118 H 106 H Respiratory 20 20 Rate Blood Pressure 112/69 114/90 O2 Sat by Pulse 99 99 Oximetry Medical Decision Making - Medical Decision Making Upon arrival patient was placed into room 29. A thorough history and physical exam was performed. I recommended treatment with tylenol however the patient refused. Patient has no signs of peritonsillar abscess. No drooling, trismus, hoarseness or stridor. She is swabbed for influenza, Covid and strep. Patient does come back positive for influenza A. I did discuss treatment with Tamiflu. States that it is recommended by the CDC as the patient is high risk due to her . Patient was agreeable with the medication administration. Given a dose of Tamiflu in the emergency department. She was additionally given a dose of viscous lidocaine for pain. Patient is instructed to follow up with her primary care. She does have an appointment with her OB tomorrow. Instructed to return for any new or worsening symptoms. Patient was discharged home in stable condition - Lab Data Lab Results 01/19/22 01/19/22 01/19/22 Range/Units 22:54 22:54 22:54 Coronavirus (PCR) Not Detected (Not Detectd) Influenza Type A RNA Detected H (Not Detectd) Influenza Type B (PCR) Not Detected (Not Detectd) Group A Strep (PCR) NOT DETECTED (Not Detectd) Disposition Clinical Impression: Acute viral pharyngitis, 34 weeks gestation of , Influenza A Disposition: HOME SELF-CARE Condition: Stable Instructions (If sedation given, give patient instructions): Influenza (ED) Additional Instructions: Please the medication as directed. Follow-up with your primary care doctor in 2-4 days and return for any new or worsening symptoms Prescriptions: Oseltamivir [Tamiflu] 75 mg PO Q12HR #10 cap Lidocaine Viscous 2% [Xylocaine Viscous] 10 ml MUCOUS MEM Q6HR #200 ml Is patient prescribed a controlled substance at d/c from ED?: No Referrals: Lynn Chu MD [Primary Care Provider] - 1-2 days Time of Disposition: 00:50
[2022-01-20] MEDS ORDERED: OSELTAMIVIR 75 MG CAP PO STA (00:44)
[2022-01-20] MEDS ORDERED: LIDOCAINE VISCOUS 2% 15 ML CUP MUCOUS MEM ONE (00:47)
[2022-01-20 00:56] VITALS: BP 114/90; PULSE 106; TEMP 98.9
== END 2022-01-20 00:57 | disposition home or self-care (01) ==
LOC: EC 20:59
DX: O98.513 Other viral diseases complicating pregnancy, third trimester (principal); J02.8 Acute pharyngitis due to other specified organisms; J10.1 Influenza due to other identified influenza virus with other respiratory manifestations; Z3A.34 34 weeks gestation of pregnancy; Z20.822 Contact with and (suspected) exposure to COVID-19
CPT/HCPCS: 87502; 87635; 87651; 99283

== ENCOUNTER 2022-01-20 12:17 | Outpatient (CLI) | payer OTHER ==
--- NOTE | 2022-01-20 13:34 | US ---
EXAMINATION TYPE: US OB BPP wo non-stress DATE OF EXAM: 01/20/2022 COMPARISON: NONE CLINICAL HISTORY: circumvallate placenta scheduled weekly. NST TECHNIQUE: Transabdominal (TA). Scoring by the quarter doper during real-time assessment. FINDINGS: BPP PARAMETERS: PRESENTATION: Vertex HEART RATE: 138 bpm RHYTHM: Normal DAVE: 15.5 DIAPHRAGM IMAGED: Yes BPP SCORIN. Breathin (1 episode of breathing of 30 second duration in 30 minutes of scanning time) 2. Movement: 2 (at least 3 discrete body movements in 30 minutes) 3. Tone: 2 (1 episode of active flexion/extension of limb) 4. DAVE: 2 (DAVE index > 5cm) TONGSMAN NOTES: IMPRESSION: TOTAL SCORE: 8 / 8 Results given to Jonelle HOLDER in L&D at time of exam
[2022-01-20] MEDS ORDERED: ACETAMINOPHEN IV (For NPO) 1,000 MG in EMPTY BAG 1 BAG IVPB ONE (13:57)
[2022-01-20] MEDS ORDERED: LACTATED RINGERS 1,000 ML IV SCH (14:00)
[2022-01-20 19:44] VITALS: BP 124/71; PULSE 115; RESP 16; TEMP 99
--- NOTE | 2022-01-23 06:54 | P.MSEPDOC ---
Presenting Problems - Arrival Data Date of Arrival on Unit: 01/20/22 Time of Arrival on Unit: 12:17 Mode of Transport: Portable - Complaint OB-Reason for Admission/Chief Complaint: NST Comment: pt presents wwit order for NST after going to office for scheduled NST Biophyisical profile with positive Influenza A. pt has had 2 doses tamiflu (Diagnosis per NST order sheet Circumvallate Placenta Icd10 not listed) Medical History - Information : 4 Para: 3 Term: 3 : 0 Abortions: Spontaneous or Elective: 0 Number of Living Children: 3 - Gestational Age Gestational Age by EVER (wks/days): 34 Weeks and 2 Days Review of Systems - Review of Systems Constitutional: No problems Breast: No problems ENT: Sore throat Cardiovascular: No problems Respiratory: No problems Gastrointestinal: No problems Genitourinary: No problems Musculoskeletal: No problems Neurological: No problems Skin: No problems Comment: pt states has been having some cramping since onset of flu. was seen in ED yesterday for sinus, coughing, sore throat, nausea, some cramping Vital Signs - Temperature Temperature: 99.0 F Temperature Source: Oral - Pulse Right Pulse Rate: 115 Pulse Assessment Method: Automatic Cuff - Respirations Respiratory Rate: 16 Oxygen Delivery Method: Room Air O2 Sat by Pulse Oximetry: 100 - Blood Pressure Right Arm Blood Pressure: 124/71 Blood Pressure Mean: 88 Blood Pressure Source: Automatic Cuff Medical Screen Scoring - Uterine Contractions Frequency From (mins): 0 Frequency To (mins): 0 - Assessment - Baby A Baseline FHR: 125 Heart Rate - NICHD Category: Category I (Normal) NST: Reactive Physician Notification - Physician Notified Physician Notified Date: 01/20/22 Physician Notified Time: 13:36 Physician: Jamilah Steele Order Received: Yes - Notification Comment Comment: Dr Steele updated reactive NST and BPP 09/29. pt states throat is too sore to drink or eat. has nausea that comes and goes but no vomiting. Order received for IV LR 1 liter and 1 dose of 1000 mg Ofirmev IVPB, pt may discharge home after IV completed Maternal Triage Index - Maternal Triage Index Presenting for scheduled procedure w/no complaint: Yes - Scheduled/Requesting Priority 5 Scheduled/Requesting Priority 5: No Disposition - Disposition OB Disposition: Discharge to home Discharge Date: 01/20/22 Discharge Time: 17:00 I agree with the RN Medical Screening Exam: Yes Case reviewed; plan agreed upon as documented in EMR&OBIX.: Yes Diagnosis: INFLUENZA DUE TO OTH IDENT INFLUENZA VIRUS W GI MANIFEST Additional Diagnoses: Circumvallate placenta
== END 2022-01-20 17:00 | disposition home or self-care (01) ==
LOC: FBPOP 12:17
PROVIDERS: ATTEND Obstetrics & Gynecology
DX: O26.893 Other specified pregnancy related conditions, third trimester (principal); Z3A.34 34 weeks gestation of pregnancy; J10.2 Influenza due to other identified influenza virus with gastrointestinal manifestations
CPT/HCPCS: 59025; 96361; 96365; 76819; G0463; J0131; 36415; 96360; 96366; 99214

== ENCOUNTER 2022-02-19 09:43 | Inpatient (IN) | payer OTHER ==
[2022-02-19] MEDS ORDERED: LIDOCAINE 0.5% (PF) 5 MG/ML (50 ML SDV) SQ PRN (10:22)
[2022-02-19] MEDS ORDERED: TERBUTALINE 1 MG/ML VIAL SQ PRN (10:22)
[2022-02-19] MEDS: LACTATED RINGERS 1,000 ML IV SCH ×2 (10:26→18:47)
[2022-02-19 10:50] LABS: Anisocytosis Slight; Basophils % (A) 0 %; Eosinophils # (A) 0.1 k/uL (0-0.7); Eosinophils % (A) 1 %; HCT 31.6 % (34.0-46.0); HGB 9.7 gm/dL (11.4-16.0); Hypochromasia Marked; Lymphocytes # (A) 0.7 k/uL (1.0-4.8); Lymphocytes % (A) 7 %; MCH 22.1 pg (25.0-35.0); MCHC 30.7 g/dL (31.0-37.0); MCV 72.1 fL (80.0-100.0); Mean Platelet Volume 7.6; Microcytosis Moderate; Monocytes # (A) 0.4 k/uL (0-1.0); Monocytes % (A) 4 %; Neutrophils # (A) 9.1 k/uL (1.3-7.7); Neutrophils % (A) 87 %; Platelet Count 220 k/uL (150-450); Poikilocytosis Slight; RBC 4.38 m/uL (3.80-5.40); RDW 16.7 % (11.5-15.5); WBC 10.4 k/uL (3.8-10.6)
[2022-02-19] MEDS ORDERED: OXYTOCIN 30 UNITS/500 ML NS 30 UNIT in SALINE 1 500ML.BAG IV SCH (12:15)
[2022-02-19] MEDS ORDERED: IBUPROFEN 600 MG TAB PO PRN (13:57)
[2022-02-19] MEDS ORDERED: LANOLIN CREAM 5 GM TUBE TOPICAL PRN (13:57)
[2022-02-19] MEDS ORDERED: SIMETHICONE 80 MG CHEWABLE PO PRN (13:57)
[2022-02-19] MEDS ORDERED: BENZOCAINE/MENTHOL SPRAY 1 GM/SPRAY AEROSOL TOPICAL PRN (13:57)
[2022-02-19] MEDS ORDERED: diphenhydrAMINE 50 MG/ML 1 ML VIAL IVP PRN ×2 (13:57)
[2022-02-19] MEDS ORDERED: ZOLPIDEM 5 MG TAB PO PRN (13:57)
[2022-02-19] MEDS ORDERED: HYDROCORTISONE 2.5% RECTAL CREAM 30 GM TUBE RECTAL PRN (13:57)
[2022-02-19] MEDS ORDERED: ACETAMINOPHEN TAB 325 MG TAB PO PRN (13:57)
[2022-02-19] MEDS ORDERED: diphenhydrAMINE 50 MG CAP PO PRN (13:57)
[2022-02-19] MEDS ORDERED: diphenhydrAMINE 25 MG CAP PO PRN (13:57)
--- NOTE | 2022-02-19 18:26 | P.HPOB ---
History of Present Illness H&P Date: 02/19/22 Chief Complaint: Advanced cervical dilation This is a 26-year-old female 4 para 3 with an estimated date of confinement of 03/01/2022, estimated gestational age of 38-4/7 weeks, who presented to the office today for her routine visit. She stated she was having irregular contractions. She has been dilated to 5 cm the last 2 visits. At her visit today she was noted to be 7-8 cm and therefore was sent to labor and delivery for delivery. Her course has been complicated by a circumvallate placenta and she has been getting regular surveillance. labs: Group B streptococcus-negative One hour Glucola-143 Three-hour Glucola-within normal limits Hepatitis B surface antigen-negative RPR-nonreactive Rubella-immune Blood type-A+ Antibody screen-negative HIV-nonreactive The globe and-12.2 Random glucose-61 GC/chlamydia/Trichomonas-negative Obstetrical history: . History of 3 vaginal deliveries at term. Gynecologic history: No history of sexual transmitted diseases. Social history: She is single. She is unemployed. Review of Systems Constitutional: Denies chills, Denies fever Eyes: denies blurred vision, denies pain Ears, nose, mouth and throat: Denies headache, Denies sore throat Cardiovascular: Denies chest pain, Denies shortness of breath Respiratory: Denies cough Gastrointestinal: Reports abdominal pain (Irregular contractions) Genitourinary: Reports pelvic pain, Reports Musculoskeletal: Reports low back pain Integumentary: Denies pruritus, Denies rash Neurological: Denies numbness, Denies weakness Psychiatric: Denies anxiety, Denies depression Past Medical History Past Medical History: No Reported History History of Any Multi-Drug Resistant Organisms: None Reported Past Surgical History: No Surgical Hx Reported Additional Past Surgical History / Comment(s): Myringotomy with tube placement Past Anesthesia/Blood Transfusion Reactions: No Reported Reaction Past Psychological History: No Psychological Hx Reported Smoking Status: Never smoker Past Alcohol Use History: None Reported Past Drug Use History: None Reported - Past Family History Father Family Medical History: Diabetes Mellitus Brother(s) Family Medical History: Diabetes Mellitus Mother Additional Family Medical History / Comment(s): Lupus Medications and Allergies Home Medications Medication Instructions Recorded Confirmed Type RX: Vit No.180/Iron/Folic 1 each PO DAILY 11/04/19 02/19/22 History [ Plus Vitamin-Mineral] Allergies Allergy/AdvReac Type Severity Reaction Status Date / Time No Known Allergies Allergy Verified 02/19/22 10:21 Exam Osteopathic Statement: *. No significant issues noted on an osteopathic structural exam other than those noted in the History and Physical/Consult. Vital Signs Temp Pulse Resp BP Pulse Ox 02/19/22 15:53 75 16 130/72 02/19/22 15:23 78 16 122/73 02/19/22 14:53 81 16 135/77 02/19/22 14:38 80 16 117/73 02/19/22 14:23 78 16 120/77 02/19/22 14:08 83 16 116/78 02/19/22 13:53 97.2 F L 94 16 133/78 02/19/22 10:26 97 F L 108 H 18 115/77 100 Intake and Output 02/19/22 02/19/22 02/19/22 06:59 14:59 22:59 Intake Total 170.033 Output Total 200 70 Balance -29.967 -70 Intake: Intake, IV Titration 170.033 Amount Oxytocin 30 Units/500 ml 170.033 Ns 30 unit In Saline 1 500ml.bag @ Per Protocol IV .Q0M [facility] Rx#:[id number] Output: Urine 100 Estimated Blood Loss 100 Output, Quantitative 70 Blood Loss Other: # Voids 2 Weight 81.647 kg HEENT: Within normal limits Heart: Regular rate and rhythm Lungs: Clear to auscultation bilaterally Abdomen: Cervix: 7-8 cm/70%/-2 station heart tones: Reactive, category 1 Contractions: Irregular Extremities: Negative Homans Results Result Diagrams: 02/19/22 10:20 Abnormal Lab Results - Last 24 Hours (Table) 02/19/22 Range/Units 10:20 Hgb 9.7 L (11.4-16.0) gm/dL Hct 31.6 L (34.0-46.0) % MCV 72.1 L (80.0-100.0) fL MCH 22.1 L (25.0-35.0) pg MCHC 30.7 L (31.0-37.0) g/dL RDW 16.7 H (11.5-15.5) % Neutrophils # 9.1 H (1.3-7.7) k/uL Lymphocytes # 0.7 L (1.0-4.8) k/uL Assessment and Plan (1) 38 weeks gestation of Current Visit: Yes Status: Acute Code(s): Z3A.38 - 38 WEEKS GESTATION OF SNOMED Code(s): 20017536 Plan: Admission for advanced cervical dilation. Artificial rupture membranes with clear fluid noted is carried out. She will undergo oxytocin augmentation of labor. Epidural anesthesia if desired. Expectant management.
--- NOTE | 2022-02-19 18:27 | P.PROBDLV ---
Vaginal Delivery Note - . Vaginal Delivery Note: The patient progressed to complete dilation after artificial rupture membranes with clear fluid noted and oxytocin augmentation of labor. Once reaching complete, she pushed for a couple pushes and infant's head came to a crown. With one further push, the infant's head delivered across the perineum followed by the anterior shoulder. Nose and mouth were bulb suctioned. Cord was clamped and cut and then infant was taken to warmer for evaluation. A viable female in dg is noted with scores of 9 at 1 minute and 9 at 5 minutes and infant weight of 8 lbs. 3 oz. Placenta delivered shortly thereafter, intact, with a three-vessel cord. Uterus contracted well after oxytocin was given and uterine massage was carried out. Inspection of the perineum revealed no perineal lacerations. Estimated blood loss is approximately 100 mL's. Both mother and infant are in stable condition.
[2022-02-19] MEDS: SENNOSIDES-DOCUSATE SODIUM 1 EACH TAB PO SCH (19:42)
[2022-02-20 00:59] VITALS: RESP 16
[2022-02-20] MEDS: LACTATED RINGERS 1,000 ML IV SCH (01:00)
--- NOTE | 2022-02-20 09:11 | P.DS ---
Providers Date of admission: 02/19/22 09:43 Expected date of discharge: 02/20/22 Attending physician: Jamilah Steele Primary care physician: Stated None - Discharge Diagnosis(es) (1) 38 weeks gestation of Current Visit: Yes Status: Acute Hospital Course: This is a 26 year old female 4 para 3 at 38-4/7 weeks who presented with dilation of 7-8 cm from the office. She underwent oxytocin augmentation of labor and delivered vaginally a viable female infant on 02/19/2022 with scores of 9 at 1 minute and 9 at 5 minutes and weight of 8 lbs. 3 oz. Her course has been uncomplicated. Lochia is decreasing. Her pain is well-controlled. Vital signs are stable. She is breast-feeding. Abdomen is soft with fundus firm and nontender. Extremities show negative Homans. Impression is status post vaginal delivery day #1. Plan is to discharge home today. Routine instructions are given. She is advised follow-up in the office in 6 weeks for check. She is advised to call the office if she has any further questions or concerns prior to her appointment time. Procedures: Oxytocin augmentation of labor Spontaneous vaginal delivery of a viable female on 02/19/2022 Patient Condition at Discharge: Stable Plan - Discharge Summary New Discharge Prescriptions: Continue Vit No.180/Iron/Folic [ Plus Vitamin-Mineral] 1 each PO DAILY Discharge Medication List Vit No.180/Iron/Folic [ Plus Vitamin-Mineral] 1 each PO DAILY 11/04/19 [History] Follow up Appointment(s)/Referral(s): Jamilah Steele DO [Doctor of Osteopathic Medicine] - 6 Weeks Activity/Diet/Wound Care/Special Instructions: Instructions 1. Do not begin any exercise program for 3 weeks. 2. Do not resume sexual relations for 3 weeks or longer if uncomfortable. 3. You may take tub baths or showers at any time. 4. You may use tampons if desired after 3 weeks. 5. Keep the area of episiotomy (stitches) clean and dry. 6. If you are not nursing, wear a good fitting, supportive bra during the day and limit fluid intake for at least 1 week to prevent breast engorgement. 7. Call the office, [phone], within the next week to make appointment for your 6 week checkup if it has not already been made. 8. Report any of the following occurrences to the doctor promptly: a. Heavy, excessive bleeding b. Chills, fever c. Burning or frequency of urination d. Pain or redness and breasts if nursing e. Increasing pain or swelling in episiotomy (stitches). In addition to the above instructions, the following additional should be followed: 1. No heavy lifting or straining (exercising) until after 6 week checkup. 2. Keep abdominal incision clean and dry: You may wear a dressing if more comfortable. 3. Make office appointment for 10 days after going home or as instructed by her doctor. Discharge Disposition: HOME SELF-CARE
[2022-02-20 09:14] LABS: Anisocytosis Slight; Basophils % (A) 0 %; Eosinophils # (A) 0.1 k/uL (0-0.7); Eosinophils % (A) 1 %; HCT 29.1 % (34.0-46.0); HGB 8.8 gm/dL (11.4-16.0); Hypochromasia Marked; Lymphocytes # (A) 0.9 k/uL (1.0-4.8); Lymphocytes % (A) 9 %; MCH 22.2 pg (25.0-35.0); MCHC 30.3 g/dL (31.0-37.0); MCV 73.1 fL (80.0-100.0); Mean Platelet Volume 7.5; Microcytosis Moderate; Monocytes # (A) 0.3 k/uL (0-1.0); Monocytes % (A) 3 %; Neutrophils # (A) 8.4 k/uL (1.3-7.7); Neutrophils % (A) 85 %; Platelet Count 190 k/uL (150-450); RBC 3.98 m/uL (3.80-5.40); RDW 16.7 % (11.5-15.5); WBC 9.9 k/uL (3.8-10.6)
[2022-02-20] MEDS: SENNOSIDES-DOCUSATE SODIUM 1 EACH TAB PO SCH (16:31)
[2022-02-20 16:40] VITALS: BP 112/56; PULSE 88; TEMP 98.3
== END 2022-02-20 18:05 | disposition home or self-care (01) | DRG 999 ==
LOC: 4FBP 09:43
PROVIDERS: ADMIT Obstetrics & Gynecology; ATTEND Obstetrics & Gynecology
PROC: 10E0XZZ Delivery of Products of Conception, External Approach (ICD-10-PCS; principal; 2022-02-19)
PROC: 3E033VJ Introduction of Other Hormone into Peripheral Vein, Percutaneous Approach (ICD-10-PCS; 2022-02-19)
PROC: 10907ZC Drainage of Amniotic Fluid, Therapeutic from Products of Conception, Via Natural or Artificial Opening (ICD-10-PCS; 2022-02-19)
DX: O43.112 Circumvallate placenta, second trimester (principal); Z37.0 Single live birth; Z79.899 Other long term (current) drug therapy; Z3A.38 38 weeks gestation of pregnancy; Z28.310 Unvaccinated for COVID-19
CPT/HCPCS: 85025; 86850; 86900; 86901; 88307

== ENCOUNTER 2023-08-11 12:09 | Outpatient (CLI) | payer OTHER ==
[2023-08-11 12:55] LABS: ALT 16 U/L (4-34); AST 24 U/L (14-36); African American GFR (CKD) >90 (>60 ml/min/1.73 sqM); Blood Urea Nitrogen 7 mg/dL (7-17); LDH 147 U/L (120-246); Non-African American GFR(CKD) >90 (>60 ml/min/1.73 sqM); Uric Acid 4.3 mg/dL (3.7-7.4)
[2023-08-11 13:06] LABS: Appearance,Urine Clear (Clear); Bacteria,Urine Few /hpf; Bilirubin,Urine Negative (Negative); Blood,Urine Negative (Negative); Color,Urine Light Yellow; Glucose,Urine (UA) Negative (Negative); Ketones,Urine 1+ (Negative); Leukocyte Esterase,Urine Trace (Negative); Mucus,Urine Rare /hpf; Nitrite,Urine Negative (Negative); Protein,Urine Negative (Negative); Specific Gravity,Urine 1.015 (1.001-1.035); Squamous Epithelial Cell,Urine 2 /hpf (0-4); Urobilinogen,Urine <2.0 mg/dL (<2.0); WBC,Urine 1 /hpf (0-5)
[2023-08-11 13:15] LABS: Anisocytosis Slight; Basophils % (A) 0 %; Eosinophils # (A) 0.1 k/uL (0-0.7); Eosinophils % (A) 1 %; HGB 9.1 gm/dL (11.4-16.0); Hypochromasia Marked; Lymphocytes # (A) 1.1 k/uL (1.0-4.8); Lymphocytes % (A) 12 %; MCH 21.5 pg (25.0-35.0); MCHC 30.4 g/dL (31.0-37.0); MCV 70.7 fL (80.0-100.0); Mean Platelet Volume 7.9; Microcytosis Moderate; Monocytes # (A) 0.4 k/uL (0-1.0); Monocytes % (A) 4 %; Neutrophils # (A) 7.6 k/uL (1.3-7.7); Neutrophils % (A) 82 %; Platelet Count 266 k/uL (150-450); Poikilocytosis Slight; RBC 4.25 m/uL (3.80-5.40); RDW 16.9 % (11.5-15.5); WBC 9.3 k/uL (3.8-10.6)
[2023-08-11 13:36] VITALS: BP 131/83; PULSE 78; RESP 18; TEMP 97.6
== END 2023-08-11 13:22 | disposition home or self-care (01) ==
LOC: FBPOP 12:09
PROVIDERS: ATTEND Obstetrics & Gynecology
DX: O13.3 Gestational [pregnancy-induced] hypertension without significant proteinuria, third trimester (principal); Z3A.38 38 weeks gestation of pregnancy
CPT/HCPCS: 59025; 81001; 82565; 83615; 84156; 84450; 84460; 84520; 84550; 85025

== ENCOUNTER 2023-08-17 20:10 | Inpatient (IN) | payer OTHER ==
[2023-08-17] MEDS ORDERED: LIDOCAINE 0.5% (PF) 5 MG/ML (50 ML SDV) SQ PRN (20:23)
[2023-08-17] MEDS ORDERED: TRANEXAMIC 1,000 MG/100ML-NACL 1,000 MG in EMPTY BAG 1 BAG IV PRN (20:23)
[2023-08-17] MEDS ORDERED: TERBUTALINE 1 MG/ML VIAL SQ PRN (20:23)
[2023-08-17] MEDS ORDERED: miSOPROStoL 200 MCG TAB PO PRN (20:23)
[2023-08-17] MEDS ORDERED: METHYLERGONOVINE 0.2 MG/ML 1 ML AMP IM PRN (20:23)
[2023-08-17] MEDS ORDERED: CARBOPROST TROMETHAMINE 250 MCG/ML 1 ML AMP IM PRN (20:23)
[2023-08-17] MEDS ORDERED: OXYTOCIN 10 UNIT/ML 1 ML VIAL IM PRN (20:23)
--- NOTE | 2023-08-17 20:49 | P.HPOB ---
History of Present Illness H&P Date: 08/17/23 Chief Complaint: Term , active labor 28-year-old 5 para 4004 at 39+ weeks, estimated due date of 08/20 based on last menstrual period and consistent with 12-week ultrasound. Patient has had essentially routine care complicated by a circumvallate placenta, patient has had weekly NSTs every week since 32 weeks. Patient notes good movement, denies vaginal bleeding or loss of fluid. Patient presents to labor and delivery with complaints of regular painful contractions. On blood work this patient is a blood type of a positive, rubella status immune, RPR is nonreactive, hepatitis B surface engine is negative, HIV is negative, grew beta strep culture is negative. Review of Systems Constitutional: Denies chills, Denies fatigue, Denies fever Ears, nose, mouth and throat: Denies headache Cardiovascular: Reports leg edema Respiratory: Denies dyspnea Gastrointestinal: Denies constipation, Denies diarrhea, Denies nausea, Denies vomiting Genitourinary: Reports Past Medical History Past Medical History: No Reported History History of Any Multi-Drug Resistant Organisms: None Reported Past Surgical History: No Surgical Hx Reported Additional Past Surgical History / Comment(s): Myringotomy with tube placement Past Anesthesia/Blood Transfusion Reactions: No Reported Reaction Past Psychological History: No Psychological Hx Reported Smoking Status: Never smoker Past Alcohol Use History: None Reported Past Drug Use History: None Reported - Past Family History Father Family Medical History: Diabetes Mellitus Brother(s) Family Medical History: Diabetes Mellitus Mother Additional Family Medical History / Comment(s): Lupus Medications and Allergies Home Medications Medication Instructions Recorded Confirmed Type Vit No.180/Iron/Folic 1 each PO DAILY 11/04/19 08/17/23 History [ Plus Vitamin-Mineral] Allergies Allergy/AdvReac Type Severity Reaction Status Date / Time No Known Allergies Allergy Verified 08/17/23 20:13 Exam Osteopathic Statement: *. No significant issues noted on an osteopathic structural exam other than those noted in the History and Physical/Consult. Intake and Output 08/17/23 08/17/23 08/17/23 06:59 14:59 22:59 Other: Weight 86.183 kg Targeted physical exam is performed this date General is a well-nourished well- developed female in active labor, breathing is nonlabored, abdomen is gravid, on cervical exam per RN she is 5 to 6 cm dilated. heart tones are noted to be category 1 and she is romero every 3 minutes. Assessment and Plan (1) Term Current Visit: Yes Status: Acute Code(s): Z34.90 - ENCNTR FOR SUPRVSN OF NORMAL , UNSP, UNSP TRIMESTER SNOMED Code(s): 26111942 (2) Active labor Current Visit: Yes Status: Acute Code(s): YMJ3657 - SNOMED Code(s): 659808877 Plan: 28-year-old 5 para 4-0-0-4 at 39+ weeks presents in active labor. Patient is admitted to labor and delivery. Patient declines epidural analgesia, IV analgesia, nitrous. Anticipate spontaneous vaginal delivery.
[2023-08-17] MEDS: LACTATED RINGERS 1,000 ML IV SCH (20:58)
[2023-08-17] MEDS: OXYTOCIN 30 UNITS/500 ML NS 30 UNIT in SALINE 1 500ML.BAG IV SCH (21:30)
[2023-08-17] MEDS ORDERED: BENZOCAINE/MENTHOL SPRAY 1 GM/SPRAY AEROSOL TOPICAL PRN (21:37)
[2023-08-17] MEDS ORDERED: diphenhydrAMINE 50 MG/ML 1 ML VIAL IVP PRN ×2 (21:37)
[2023-08-17] MEDS ORDERED: LANOLIN CREAM 1 GM TUBE TOPICAL PRN (21:37)
[2023-08-17] MEDS ORDERED: HYDROCORTISONE 2.5% RECTAL CREAM 30 GM TUBE RECTAL PRN (21:37)
[2023-08-17] MEDS ORDERED: ZOLPIDEM 5 MG TAB PO PRN (21:37)
[2023-08-17] MEDS ORDERED: diphenhydrAMINE 50 MG CAP PO PRN (21:37)
[2023-08-17] MEDS ORDERED: ACETAMINOPHEN TAB 325 MG TAB PO PRN (21:37)
[2023-08-17] MEDS ORDERED: diphenhydrAMINE 25 MG CAP PO PRN (21:37)
[2023-08-17] MEDS ORDERED: SIMETHICONE 80 MG CHEWABLE PO PRN (21:37)
--- NOTE | 2023-08-17 21:40 | P.PROBDLV ---
Vaginal Delivery Note - . Vaginal Delivery Note: Findings, viable female delivered at 2126, weight of 8 pounds 7.5 ounces. 28-year-old 5 para 4-0-0-4 that presented to labor and delivery in active labor. Patient was noted to be 6 cm dilated upon admission. Patient had been receiving essentially routine care with no complications. On ultrasound a circumvallate placenta was appreciated. Patient underwent amniotomy and clear fluid was obtained. Patient declined analgesia. Patient progressed to complete began pushing and had a normal spontaneous vaginal delivery of a viable female infant at 2126, weight of 8 pounds 7.5 ounces, Apgars of 9 and 9 at 1 and 5 minutes respectively. After 2-minute delay the umbilical cord was doubly clamped and cut, placenta was delivered spontaneously intact with a three-vessel cord being noted. Uterus was noted to be firm and below the umbilicus, estimated blood loss 100 cc. All counts were noted be correct x 2 at the end of the delivery. Patient and infant tolerated delivery well and are resting comfortably.
[2023-08-17 22:18] LABS: Anisocytosis Slight; Basophils % (A) 0 %; Eosinophils # (A) 0.1 k/uL (0-0.7); Eosinophils % (A) 1 %; HCT 31.8 % (34.0-46.0); HGB 9.7 gm/dL (11.4-16.0); Hypochromasia Marked; Lymphocytes # (A) 1.3 k/uL (1.0-4.8); Lymphocytes % (A) 12 %; MCH 21.6 pg (25.0-35.0); MCHC 30.4 g/dL (31.0-37.0); MCV 71.1 fL (80.0-100.0); Microcytosis Moderate; Monocytes # (A) 0.7 k/uL (0-1.0); Monocytes % (A) 6 %; Neutrophils # (A) 8.9 k/uL (1.3-7.7); Neutrophils % (A) 80 %; Platelet Count 249 k/uL (150-450); Poikilocytosis Slight; RBC 4.48 m/uL (3.80-5.40); RDW 16.8 % (11.5-15.5); WBC 11.1 k/uL (3.8-10.6)
[2023-08-17] MEDS: IBUPROFEN 600 MG TAB PO SCH (23:27)
[2023-08-18 00:40] VITALS: RESP 16
[2023-08-18 07:58] LABS: Anisocytosis Slight; Basophils % (A) 0 %; Eosinophils % (A) 0 %; HCT 30.3 % (34.0-46.0); HGB 8.9 gm/dL (11.4-16.0); Hypochromasia Marked; Lymphocytes # (A) 1.5 k/uL (1.0-4.8); Lymphocytes % (A) 11 %; MCH 21.2 pg (25.0-35.0); MCHC 29.4 g/dL (31.0-37.0); MCV 72.1 fL (80.0-100.0); Mean Platelet Volume 7.9; Microcytosis Moderate; Monocytes # (A) 0.5 k/uL (0-1.0); Monocytes % (A) 3 %; Neutrophils % (A) 84 %; Platelet Count 218 k/uL (150-450); RDW 16.9 % (11.5-15.5); WBC 13.2 k/uL (3.8-10.6)
[2023-08-18] MEDS: SENNOSIDES-DOCUSATE SODIUM 1 EACH TAB PO SCH (08:40)
--- NOTE | 2023-08-18 08:46 | P.PNOBGVD ---
Subjective - Subjective Patient reports: Reports appetite normal, Reports voiding normally, Reports pain well controlled, Reports ambulating normally : doing well Objective - Latest Vital Signs Latest vital signs: Vital Signs Temp Pulse Resp BP Pulse Ox 08/18/23 08:00 98.1 F 77 16 123/76 08/18/23 04:00 98.4 F 77 16 108/69 98 08/17/23 23:35 97.1 F L 63 16 131/84 08/17/23 23:20 97.1 F L 61 18 131/81 08/17/23 23:05 97.3 F L 73 18 125/70 99 08/17/23 22:50 96.8 F L 69 18 133/72 100 08/17/23 22:35 97.2 F L 70 16 108/82 99 08/17/23 22:20 97.4 F L 71 16 133/78 100 08/17/23 22:05 97.1 F L 74 16 127/71 100 08/17/23 21:46 97.0 F L 78 16 148/75 99 08/17/23 21:35 97.6 F 91 16 134/80 99 08/17/23 20:30 98.2 F 104 H 16 135/94 98 08/17/23 20:12 98.2 F 104 H 16 135/94 98 Intake and Output 08/17/23 08/18/23 08/18/23 22:59 06:59 14:59 Intake Total 167 600 Output Total 100 496 Balance 67 104 Intake: Intake, IV Titration 167 Amount Oxytocin 30 Units/500 ml 167 Ns 30 unit In Saline 1 500ml.bag @ Per Protocol IV .Q0M [facility] Rx#:[id number] Oral 600 Output: Estimated Blood Loss 100 Output, Quantitative 496 Blood Loss Other: # Voids 1 2 1 Weight 86.183 kg - Exam Extremities: Present: normal Abdomen: Present: normal appearance, soft Uterus: Present: normal, firm (The uterine fundus is tonic and nontender below the umbilicus.) - Labs Labs: Abnormal Lab Results - Last 24 Hours (Table) 08/17/23 08/18/23 Range/Units 21:02 07:41 WBC 11.1 H 13.2 H (3.8-10.6) k/uL Hgb 9.7 L 8.9 L (11.4-16.0) gm/dL Hct 31.8 L 30.3 L (34.0-46.0) % MCV 71.1 L 72.1 L (80.0-100.0) fL MCH 21.6 L 21.2 L (25.0-35.0) pg MCHC 30.4 L 29.4 L (31.0-37.0) g/dL RDW 16.8 H 16.9 H (11.5-15.5) % Neutrophils # 8.9 H 11.0 H (1.3-7.7) k/uL Assessment and Plan (1) Normal spontaneous vaginal delivery Current Visit: Yes Status: Acute Code(s): O80 - ENCOUNTER FOR FULL-TERM UNCOMPLICATED DELIVERY SNOMED Code(s): 69726294 Plan: Continue routine care. Anticipate discharge home tomorrow pending no complications. I have encouraged the patient to ambulate in the hallways routinely.
[2023-08-19 08:28] VITALS: BP 128/67; PULSE 65; TEMP 98
--- NOTE | 2023-08-19 08:46 | P.DS ---
Providers Date of admission: 08/17/23 20:27 Expected date of discharge: 08/19/23 Attending physician: Greg Tesfaye Primary care physician: Stated None - Discharge Diagnosis(es) (1) Normal spontaneous vaginal delivery Current Visit: Yes Status: Acute Hospital Course: The patient is a 28-year-old 5 para 4-0-0-4 admitted at 39+ weeks by good dating parameters. She is admitted in active labor with all signs reassuring, category 1 heart rate tracing. She was noted to have a circumvallate placenta and had routine and reassuring testing weekly from 32 weeks. On labor and delivery, she underwent artificial rupture of membranes and progressed fairly quickly to complete and then pushed to a normal spontaneous vaginal delivery of a viable 8 pound 8 ounce baby girl with Apgars of 9 at 1 minute and 9 at 5 minutes. Her course was unremarkable with vital signs remaining stable and her temperature was afebrile throughout. She was deemed stable for discharge on day #2 and was discharged home to follow-up in the office in 6 weeks time routinely. Discharge instructions included calling for any significantly increased bleeding or foul-smelling lochia, significantly increased fever or abdominal pain, perineal complaints, breast complaints, or anything else that concerned her. She was additionally instructed to have nothing in the vagina for at least 6 weeks time to include intercourse. She understood her instructions and agrees to follow-up as noted above. Discharge medications included only [id number] analgesic pain medications as well as continued vitamins as she has opted to breast- feed. Maternal blood type is a positive and rubella status is immune. Procedures: #1. Artificial rupture of membranes #2. Normal spontaneous vaginal delivery Patient Condition at Discharge: Stable Plan - Discharge Summary New Discharge Prescriptions: No Action Vit No.180/Iron/Folic [ Plus Vitamin-Mineral] 1 each PO DAILY Discharge Medication List Vit No.180/Iron/Folic [ Plus Vitamin-Mineral] 1 each PO DAILY 11/04/19 [History] Follow up Appointment(s)/Referral(s): Greg Tesfaye MD [STAFF PHYSICIAN] - 09/28/23 1:15 pm Discharge Disposition: HOME SELF-CARE
== END 2023-08-19 15:13 | disposition home or self-care (01) | DRG 560 ==
LOC: FBPOP 20:10 → 4FBP 20:27
PROVIDERS: ADMIT Obstetrics & Gynecology Obstetrics; ATTEND Obstetrics & Gynecology
PROC: 10E0XZZ Delivery of Products of Conception, External Approach (ICD-10-PCS; principal; 2023-08-17)
PROC: 10907ZC Drainage of Amniotic Fluid, Therapeutic from Products of Conception, Via Natural or Artificial Opening (ICD-10-PCS; 2023-08-17)
DX: O43.113 Circumvallate placenta, third trimester (principal); O62.3 Precipitate labor; Z3A.39 39 weeks gestation of pregnancy; Z37.0 Single live birth
CPT/HCPCS: 85025; 86850; 86900; 86901; 99213